=== PATIENT | female | born 1970 | race Caucasian/White ===

== ENCOUNTER 2017-06-17 06:13 | Observation (INO) | payer OTHER, MEDICAID ==
[2017-06-17] MEDS ORDERED: CEFAZOLIN 2 GM/50 ML (PMX) 50 ML IVPB ×2 (07:00→09:30)
[2017-06-17] MEDS ORDERED: FENTAnyl 50 MCG/ML VIAL (08:11)
[2017-06-17] MEDS ORDERED: GLYCOPYRROLATE 0.4 MG INJ (08:11)
[2017-06-17] MEDS ORDERED: PROPOFOL 20 ML (08:11)
[2017-06-17] MEDS ORDERED: CEFAZOLIN 1 GM INJ (08:11)
[2017-06-17] MEDS ORDERED: ROCURONIUM 50 MG INJ (08:11)
[2017-06-17] MEDS ORDERED: DEXAMETHASONE 4 MG/ML 1 ML INJ (08:11)
[2017-06-17] MEDS ORDERED: MIDAZOLAM 1 MG/ML 2 ML INJ (08:11)
[2017-06-17] MEDS ORDERED: ONDANSETRON 4 MG INJ (08:11)
[2017-06-17] MEDS ORDERED: NEOSTIGMINE 3 MG/3 ML SYRINGE (08:11)
[2017-06-17] MEDS ORDERED: SUGAMMADEX SODIUM 200 MG/2 ML VIAL IV (09:07)
[2017-06-17] MEDS ORDERED: LABETALOL HCL 20MG INJ IV (09:30)
[2017-06-17] MEDS ORDERED: FENTAnyl 50 MCG/ML VIAL IV ×3 (09:30)
[2017-06-17] MEDS ORDERED: HYDROmorphONE (0.2 MG/ML) 10ML SYG IV ×2 (09:30)
[2017-06-17] MEDS ORDERED: MIDAZOLAM 1 MG/ML 2 ML INJ IV (09:30)
[2017-06-17] MEDS ORDERED: TRIMETHOBENZAMIDE 100 MG/ML VIAL IM (09:30)
[2017-06-17] MEDS ORDERED: MEPERIDINE 25 MG INJ IV (09:30)
[2017-06-17] MEDS ORDERED: IPRATROPIUM (NEB) 0.5 MG/2.5 ML AMP HHN (09:30)
[2017-06-17] MEDS ORDERED: EPHEDrine SULFATE 50 MG/5 ML SYG IV (09:30)
[2017-06-17] MEDS ORDERED: hydrALAzine 20 MG INJ IV (09:30)
[2017-06-17] MEDS ORDERED: DIPHENHYDRAMINE 50 MG INJ IV (09:30)
[2017-06-17] MEDS ORDERED: OXYCODONE/ACETAMINOPHEN (5/325) TAB PO ×2 (09:30)
[2017-06-17] MEDS ORDERED: ALBUTEROL 0.083% (NEB) 2.5 MG/3 ML AMP HHN (09:30)
[2017-06-17] MEDS: BUPIVACAINE 0.25% (MPF) 30 ML INJ (09:31)
[2017-06-17] MEDS: HYDROmorphONE (0.2 MG/ML) 10ML SYG IV (09:50)
[2017-06-17] MEDS: ONDANSETRON 4 MG INJ IV (09:50)
[2017-06-17 10:13] LABS: ADD MAN DIFF? NO
[2017-06-17 10:17] LABS: BASOPHILS % 0.4 % (0.0-2.0); EOSINOPHILS # 0.4 10^3/ul (0.0-0.5); EOSINOPHILS % 4.4 % (0.0-7.0); HEMATOCRIT 34.5 % (37.0-47.0); HEMOGLOBIN 11.5 g/dl (12.0-16.0); LYMPHOCYTES % 25.1 % (15.0-51.0); MEAN CORPUSCULAR HEMOGLOBIN 27.5 pg (29.0-33.0); MEAN CORPUSCULAR HGB CONC 33.3 g/dl (32.0-37.0); MEAN CORPUSCULAR VOLUME 82.5 fl (82.0-101.0); MEAN PLATELET VOLUME 9.8 fl (7.4-10.4); MONOCYTE # 0.4 10^3/ul (0.3-0.9); MONOCYTES % 5.3 % (0.0-11.0); NEUTROPHIL # 5.1 10^3/ul (1.6-7.5); PLATELET COUNT 273 10^3/UL (140-415); RED BLOOD COUNT 4.18 10^6/ul (4.20-5.40); RED CELL DISTRIBUTION WIDTH 13.4 % (11.5-14.5)
[2017-06-17 10:17] LABS: WHITE BLOOD COUNT 7.9 10^3/ul (4.8-10.8)
[2017-06-17 10:37] LABS: ALANINE AMINOTRANSFERASE 27 IU/L (13-69); ALBUMIN/GLOBULIN RATIO 1.37; ALKALINE PHOSPHATASE 65 IU/L (42-121); ANION GAP 13 (8-16); ASPARTATE AMINO TRANSFERASE 17 IU/L (15-46); CARBON DIOXIDE 21 mmol/L (21-31); CHLORIDE 113 mmol/L (97-110); GLUCOSE 106 mg/dl (70-220); TOTAL PROTEIN 6.9 g/dl (6.1-8.1)
[2017-06-17 10:39] LABS: POTASSIUM 4.4 mmol/L (3.5-5.1); SODIUM 143 mmol/L (135-144)
[2017-06-17 10:40] LABS: BLOOD UREA NITROGEN 15 mg/dl (7-20)
[2017-06-17 10:43] LABS: CALCIUM 10.3 mg/dl (8.4-10.2); CREATININE 0.62 mg/dl (0.44-1.00)
[2017-06-17] MEDS: SOD CHLORIDE 0.9% 1,000 ML IV (11:30)
[2017-06-17] MEDS: morphine 2 MG INJ IV ×2 (11:38→20:51)
[2017-06-17] MEDS: POTASSIUM CHLORIDE 20 MEQ in LACTATED RINGER'S 1,000 ML IV ×2 (15:02→19:36)
[2017-06-17] MEDS: CEFAZOLIN 2 GM/50 ML (PMX) 50 ML IVPB ×2 (15:17→22:25)
[2017-06-17] MEDS: HYDROCODONE/APAP (5/325) TAB PO (16:32)
[2017-06-18] MEDS: POTASSIUM CHLORIDE 20 MEQ in LACTATED RINGER'S 1,000 ML IV ×3 (01:34→22:13)
[2017-06-18] MEDS: HYDROCODONE/APAP (5/325) TAB PO ×3 (01:39→21:41)
[2017-06-18 06:02] LABS: ADD MAN DIFF? NO
[2017-06-18 06:11] LABS: WHITE BLOOD COUNT 16.4 10^3/ul (4.8-10.8)
[2017-06-18 06:11] LABS: BASOPHILS % 0.1 % (0.0-2.0); EOSINOPHILS % 0.1 % (0.0-7.0); HEMATOCRIT 33.3 % (37.0-47.0); HEMOGLOBIN 10.9 g/dl (12.0-16.0); LYMPHOCYTES # 1.5 10^3/ul (0.8-2.9); MEAN CORPUSCULAR HEMOGLOBIN 26.9 pg (29.0-33.0); MEAN CORPUSCULAR HGB CONC 32.7 g/dl (32.0-37.0); MEAN CORPUSCULAR VOLUME 82.2 fl (82.0-101.0); MEAN PLATELET VOLUME 10.6 fl (7.4-10.4); MONOCYTE # 1.1 10^3/ul (0.3-0.9); MONOCYTES % 6.6 % (0.0-11.0); NEUTROPHIL # 13.7 10^3/ul (1.6-7.5); NEUTROPHILS % 83.7 % (39.0-77.0); PLATELET COUNT 302 10^3/UL (140-415); RED BLOOD COUNT 4.05 10^6/ul (4.20-5.40); RED CELL DISTRIBUTION WIDTH 13.3 % (11.5-14.5)
[2017-06-18 06:37] LABS: ALANINE AMINOTRANSFERASE 23 IU/L (13-69); ALBUMIN 3.4 g/dl (3.3-4.9); ALBUMIN/GLOBULIN RATIO 1.17; ALKALINE PHOSPHATASE 61 IU/L (42-121); ANION GAP 15 (8-16); ASPARTATE AMINO TRANSFERASE 16 IU/L (15-46); BILIRUBIN,INDIRECT 0.2 mg/dl (0-1.1); BILIRUBIN,TOTAL 0.2 mg/dl (0.2-1.3); BLOOD UREA NITROGEN 18 mg/dl (7-20); CALCIUM 8.9 mg/dl (8.4-10.2); CARBON DIOXIDE 21 mmol/L (21-31); CHLORIDE 110 mmol/L (97-110); CREATININE 0.72 mg/dl (0.44-1.00); GLUCOSE 97 mg/dl (70-220); POTASSIUM 4.2 mmol/L (3.5-5.1); SODIUM 142 mmol/L (135-144); TOTAL PROTEIN 6.3 g/dl (6.1-8.1)
[2017-06-19 06:40] LABS: ADD MAN DIFF? NO
[2017-06-19 06:44] LABS: WHITE BLOOD COUNT 7.3 10^3/ul (4.8-10.8)
[2017-06-19 06:44] LABS: BASOPHILS % 0.5 % (0.0-2.0); EOSINOPHILS # 0.2 10^3/ul (0.0-0.5); EOSINOPHILS % 2.6 % (0.0-7.0); HEMATOCRIT 31.4 % (37.0-47.0); HEMOGLOBIN 10.4 g/dl (12.0-16.0); LYMPHOCYTES # 2.6 10^3/ul (0.8-2.9); LYMPHOCYTES % 35.8 % (15.0-51.0); MEAN CORPUSCULAR HEMOGLOBIN 27.9 pg (29.0-33.0); MEAN CORPUSCULAR HGB CONC 33.1 g/dl (32.0-37.0); MEAN CORPUSCULAR VOLUME 84.2 fl (82.0-101.0); MEAN PLATELET VOLUME 10.6 fl (7.4-10.4); MONOCYTE # 0.6 10^3/ul (0.3-0.9); MONOCYTES % 8.4 % (0.0-11.0); NEUTROPHIL # 3.8 10^3/ul (1.6-7.5); NEUTROPHILS % 52.3 % (39.0-77.0); PLATELET COUNT 247 10^3/UL (140-415); RED BLOOD COUNT 3.73 10^6/ul (4.20-5.40); RED CELL DISTRIBUTION WIDTH 13.7 % (11.5-14.5)
[2017-06-19 07:09] LABS: ANION GAP 14 (8-16); BLOOD UREA NITROGEN 18 mg/dl (7-20); CALCIUM 8.2 mg/dl (8.4-10.2); CARBON DIOXIDE 24 mmol/L (21-31); CHLORIDE 111 mmol/L (97-110); CREATININE 0.69 mg/dl (0.44-1.00); GLUCOSE 82 mg/dl (70-220); POTASSIUM 3.9 mmol/L (3.5-5.1); SODIUM 145 mmol/L (135-144)
[2017-06-19] MEDS: POTASSIUM CHLORIDE 20 MEQ in LACTATED RINGER'S 1,000 ML IV (09:42)
[2017-06-19] MEDS: HYDROCODONE/APAP (5/325) TAB PO (09:57)
[2017-06-19] MEDS: CALCIUM/VITAMIN D (500/200) TAB PO (13:16)
[2017-06-21 07:36] LABS: PTH INTACT 9 pg/mL (14-64)
== END 2017-06-19 18:43 | disposition home or self-care (01) ==
LOC: SDS 06:13 → REC 10:06 → PP2 11:17
DX: D35.1 Benign neoplasm of parathyroid gland (principal); E21.0 Primary hyperparathyroidism; I10 Essential (primary) hypertension
CPT/HCPCS: 60500; 80048; 80053; 83970; 85025; 88307; 88331; 99217; G0378

== ENCOUNTER 2017-10-07 12:56 | Inpatient (IN) | payer OTHER ==
[~2017-10-07 12:56] MED LIST: ALBUMIN HUMAN 5% 250 ML INJ; CEFAZOLIN 1 GM INJ; GLYCOPYRROLATE 0.4 MG INJ; LIDOCAINE 2% (SDV) 5 ML INJ; NEOSTIGMINE 3 MG/3 ML SYRINGE; PROPOFOL 200 MG INJ; ROCURONIUM 50 MG INJ
[2017-10-07] MEDS ORDERED: ROCURONIUM 50 MG INJ ×2 (15:01→15:42)
[2017-10-07] MEDS ORDERED: PROPOFOL 0 ML (15:01)
[2017-10-07] MEDS ORDERED: NEOSTIGMINE 3 MG/3 ML SYRINGE (15:01)
[2017-10-07] MEDS ORDERED: LIDOCAINE 2% (SDV) 5 ML INJ (15:01)
[2017-10-07] MEDS ORDERED: MEPERIDINE 100 MG INJ (15:01)
[2017-10-07] MEDS ORDERED: GLYCOPYRROLATE 0.4 MG INJ (15:01)
[2017-10-07] MEDS ORDERED: SUCCINYLCHOLINE CHLORIDE 100 MG/5 ML SYG IV (15:01)
[2017-10-07] MEDS ORDERED: CEFAZOLIN 1 GM INJ (15:33)
[2017-10-07] MEDS ORDERED: HYDROmorphONE 2 MG/ML SYG (16:20)
[2017-10-07] MEDS ORDERED: NACL 0.9% 3 ML SYG IV (17:00)
[2017-10-07] MEDS ORDERED: NALOXONE (0.4 MG/ML) INJ IV (17:00)
[2017-10-07] MEDS ORDERED: LABETALOL HCL 20MG INJ (17:00)
[2017-10-07] MEDS: CEFAZOLIN 1 GM INJ (17:01)
[2017-10-07] MEDS: HEPARIN 1000 UNITS/ML 10 ML INJ (17:02)
[2017-10-07] MEDS: GELATIN SIZE 100 SPONGE (17:02)
[2017-10-07] MEDS: THROMBIN 5000 UNIT VIAL (17:03)
[2017-10-07] MEDS ORDERED: GELATIN SIZE 100 SPONGE (17:50)
[2017-10-07] MEDS ORDERED: PHENYLephrine (100 MCG/ML) 5ML SYG (18:51)
[2017-10-07] MEDS ORDERED: ONDANSETRON 4 MG INJ IV (20:30)
[2017-10-07] MEDS ORDERED: ALBUTEROL 0.083% (NEB) 2.5 MG/3 ML AMP HHN (20:30)
[2017-10-07] MEDS ORDERED: METOCLOPRAMIDE 10 MG INJ IV (20:30)
[2017-10-07] MEDS ORDERED: HYDROmorphONE 0.5 MG/0.5 ML SYG IV ×3 (20:30)
[2017-10-07] MEDS ORDERED: EPHEDrine SULFATE 50 MG/5 ML SYG IV (20:30)
[2017-10-07] MEDS ORDERED: LABETALOL HCL 20MG INJ IV (20:30)
[2017-10-07] MEDS ORDERED: DIPHENHYDRAMINE 50 MG INJ IV (20:30)
[2017-10-07] MEDS ORDERED: hydrALAzine 20 MG INJ IV (20:30)
[2017-10-07] MEDS ORDERED: MIDAZOLAM 1 MG/ML 2 ML INJ IV (20:30)
[2017-10-07] MEDS ORDERED: MEPERIDINE 25 MG INJ IV (20:30)
[2017-10-07] MEDS: HYDROmorphONE 1 MG/ML SYG IM (20:32)
[2017-10-07] MEDS: CEFAZOLIN 1 GM/50 ML (PMX) 50 ML IVPB (20:49)
[2017-10-07] MEDS: HYDROmorphONE 0.2 MG/ML PCA IV (20:53)
[2017-10-07] MEDS: NS + KCL 20 MEQ 1,000 ML IV (21:13)
[2017-10-07] MEDS: HYDROmorphONE 2 MG/ML SYG IM (21:14)
[2017-10-08] MEDS: CEFAZOLIN 1 GM/50 ML (PMX) 50 ML IVPB ×3 (05:23→12:27)
[2017-10-08 05:44] LABS: HEMATOCRIT 29.5 % (37.0-47.0); HEMOGLOBIN 9.5 g/dl (12.0-16.0)
[2017-10-08 06:46] LABS: ANION GAP 10 (8-16); BLOOD UREA NITROGEN 14 mg/dl (7-20); CALCIUM 7.6 mg/dl (8.4-10.2); CARBON DIOXIDE 21 mmol/L (21-31); CHLORIDE 112 mmol/L (97-110); CREATININE 0.53 mg/dl (0.44-1.00); GLUCOSE 133 mg/dl (70-220); POTASSIUM 4.2 mmol/L (3.5-5.1); SODIUM 139 mmol/L (135-144)
[2017-10-08] MEDS ORDERED: GLYCOPYRROLATE 0.4 MG INJ (07:00)
[2017-10-08] MEDS ORDERED: NEOSTIGMINE 3 MG/3 ML SYRINGE (07:00)
[2017-10-08] MEDS: NS + KCL 20 MEQ 1,000 ML IV ×3 (07:21→22:28)
[2017-10-08] MEDS: HYDROmorphONE 0.2 MG/ML PCA IV ×2 (10:48→20:06)
[2017-10-08] MEDS ORDERED: THROMBIN 5000 UNIT VIAL (17:52)
[2017-10-08] MEDS ORDERED: GELATIN SIZE 100 SPONGE (17:52)
[2017-10-08] MEDS: ACETAMINOPHEN 325 MG TAB PO (20:08)
[2017-10-08] MEDS ORDERED: HYDROmorphONE 0.5 MG/0.5 ML SYG IV ×3 (20:30)
[2017-10-08] MEDS ORDERED: ONDANSETRON 4 MG INJ IV (20:30)
[2017-10-08] MEDS ORDERED: DIPHENHYDRAMINE 50 MG INJ IV (20:30)
[2017-10-08] MEDS ORDERED: LABETALOL HCL 20MG INJ IV (20:30)
[2017-10-08] MEDS ORDERED: FENTAnyl 50 MCG/ML VIAL IV (20:30)
[2017-10-08] MEDS ORDERED: MEPERIDINE 25 MG INJ IV (20:30)
[2017-10-08] MEDS ORDERED: hydrALAzine 20 MG INJ IV (20:30)
[2017-10-08] MEDS ORDERED: ROCURONIUM 50 MG INJ (20:44)
[2017-10-08] MEDS ORDERED: LIDOCAINE 2% (SDV) 5 ML INJ (20:44)
[2017-10-08] MEDS ORDERED: PROPOFOL 20 ML (20:44)
[2017-10-08] MEDS ORDERED: SUCCINYLCHOLINE CHLORIDE 100 MG/5 ML SYG IV (20:44)
[2017-10-08] MEDS ORDERED: MIDAZOLAM 1 MG/ML 2 ML INJ (20:44)
[2017-10-08] MEDS ORDERED: PHENYLephrine (100 MCG/ML) 5ML SYG ×3 (20:58→22:20)
[2017-10-08] MEDS: ROPIVACAINE 0.5 % 30 ML VIAL ×2 (21:19)
[2017-10-08] MEDS ORDERED: CEFAZOLIN 1 GM INJ (21:19)
[2017-10-08] MEDS ORDERED: DEXAMETHASONE 4 MG/ML 1 ML INJ (21:28)
[2017-10-08] MEDS ORDERED: ONDANSETRON 4 MG INJ (21:28)
[2017-10-08] MEDS ORDERED: FAMOTIDINE 20 MG INJ (21:28)
[2017-10-08] MEDS ORDERED: FENTAnyl 50 MCG/ML VIAL (21:29)
[2017-10-08] MEDS: POLYMYXIN/BACITRACIN 1L IRRIG (21:30)
[2017-10-08] MEDS ORDERED: HYDROmorphONE 2 MG/ML SYG (21:48)
[2017-10-08] MEDS ORDERED: SUGAMMADEX SODIUM 200 MG/2 ML VIAL IV ×2 (21:48→21:58)
[2017-10-08] MEDS: ALBUMIN HUMAN 5% 250 ML (22:40)
[2017-10-09 05:35] LABS: WHITE BLOOD COUNT 10.5 10^3/ul (4.8-10.8)
[2017-10-09 05:35] LABS: ABNORMAL IP MESSAGE 1; HEMATOCRIT 28.7 % (37.0-47.0); HEMOGLOBIN 9.1 g/dl (12.0-16.0); MEAN CORPUSCULAR HEMOGLOBIN 26.9 pg (29.0-33.0); MEAN CORPUSCULAR HGB CONC 31.7 g/dl (32.0-37.0); MEAN CORPUSCULAR VOLUME 84.9 fl (82.0-101.0); PLATELET COUNT 247 10^3/UL (140-415); RED BLOOD COUNT 3.38 10^6/ul (4.20-5.40); RED CELL DISTRIBUTION WIDTH 14.6 % (11.5-14.5)
[2017-10-09] MEDS: NS + KCL 20 MEQ 1,000 ML IV ×3 (05:43→18:27)
[2017-10-09 06:03] LABS: ANION GAP 9 (8-16); BLOOD UREA NITROGEN 14 mg/dl (7-20); CALCIUM 7.1 mg/dl (8.4-10.2); CARBON DIOXIDE 22 mmol/L (21-31); CHLORIDE 115 mmol/L (97-110); CREATININE 0.61 mg/dl (0.44-1.00); GLUCOSE 112 mg/dl (70-220); POTASSIUM 4.3 mmol/L (3.5-5.1); SODIUM 142 mmol/L (135-144)
[2017-10-09 06:22] LABS: ADD MAN DIFF? YES; POSITIVE DIFF @See below
[2017-10-09] MEDS: HYDROmorphONE 0.2 MG/ML PCA IV ×2 (09:05→20:26)
[2017-10-09 09:11] LABS: ANISOCYTOSIS 1+ (0-0); BAND NEUTROPHILS #M 4.6 10^3/ul (0.0-0.6); BAND NEUTROPHILS % (M) 44 % (0-4); GIANT THROMBO% (M) 1 % (0-0); LYMPHOCYTES #M 0.8 10^3/ul (0.8-2.9); LYMPHOCYTES % (M) 8 % (15-51); MICROCYTOSIS 1+ (0-0); MONOCYTE #M 0.4 10^3/ul (0.3-0.9); MONOCYTES % (M) 4 % (0-11); PLATELET ESTIMATE NORMAL; POLYCHROMASIA 1+ (0-0); SEG NEUT #M 5.1 10^3/ul (1.6-7.5); SEGMENTED NEUTROPHILS (M) % 44 % (39-77); SMUDGE%M 1 % (0-0)
[2017-10-09] MEDS: ACETAMINOPHEN 325 MG TAB PO (14:52)
[2017-10-10] MEDS: NS + KCL 20 MEQ 1,000 ML IV ×3 (02:31→15:00)
[2017-10-10] MEDS: ACETAMINOPHEN 325 MG TAB PO (05:00)
[2017-10-10 05:28] LABS: ADD MAN DIFF? NO
[2017-10-10 05:35] LABS: ABNORMAL IP MESSAGE 1; BASOPHIL # 0.1 10^3/ul (0.0-0.1); BASOPHILS % 0.4 % (0.0-2.0); HEMATOCRIT 29.7 % (37.0-47.0); HEMOGLOBIN 9.4 g/dl (12.0-16.0); LYMPHOCYTES # 0.4 10^3/ul (0.8-2.9); MEAN CORPUSCULAR HEMOGLOBIN 27.2 pg (29.0-33.0); MEAN CORPUSCULAR HGB CONC 31.6 g/dl (32.0-37.0); MEAN CORPUSCULAR VOLUME 85.8 fl (82.0-101.0); MONOCYTE # 0.8 10^3/ul (0.3-0.9); MONOCYTES % 5.6 % (0.0-11.0); NEUTROPHIL # 12.4 10^3/ul (1.6-7.5); PLATELET COUNT 306 10^3/UL (140-415); RED BLOOD COUNT 3.46 10^6/ul (4.20-5.40); RED CELL DISTRIBUTION WIDTH 14.5 % (11.5-14.5)
[2017-10-10 05:35] LABS: WHITE BLOOD COUNT 13.7 10^3/ul (4.8-10.8)
[2017-10-10 05:49] LABS: NEUTROPHILS % 90.2 % (39.0-77.0); POSITIVE DIFF @See below
[2017-10-10 05:55] LABS: ALANINE AMINOTRANSFERASE 22 IU/L (13-69); ALBUMIN/GLOBULIN RATIO 1.03; ALKALINE PHOSPHATASE 53 IU/L (42-121); ANION GAP 10 (8-16); ASPARTATE AMINO TRANSFERASE 26 IU/L (15-46); BILIRUBIN,INDIRECT 0.5 mg/dl (0-1.1); BILIRUBIN,TOTAL 0.5 mg/dl (0.2-1.3); BLOOD UREA NITROGEN 14 mg/dl (7-20); CALCIUM 7.2 mg/dl (8.4-10.2); CARBON DIOXIDE 23 mmol/L (21-31); CHLORIDE 110 mmol/L (97-110); CREATININE 0.65 mg/dl (0.44-1.00); GLUCOSE 130 mg/dl (70-220); POTASSIUM 4.3 mmol/L (3.5-5.1); SODIUM 139 mmol/L (135-144); TOTAL PROTEIN 5.9 g/dl (6.1-8.1)
[2017-10-10] MEDS: HYDROmorphONE 0.2 MG/ML PCA IV ×2 (06:33→16:27)
[2017-10-10] MEDS: ATENOLOL 25 MG TAB PO ×2 (07:03→20:18)
[2017-10-10 07:29] LABS: ANISOCYTOSIS 2+ (0-0); BAND NEUTROPHILS #M 6.4 10^3/ul (0.0-0.6); BAND NEUTROPHILS % (M) 47 % (0-4); LYMPHOCYTES % (M) 8 % (15-51); MICROCYTOSIS 2+ (0-0); MONOCYTE #M 0.2 10^3/ul (0.3-0.9); MONOCYTES % (M) 2 % (0-11); PLATELET ESTIMATE NORMAL; POLYCHROMASIA 2+ (0-0); SEG NEUT #M 6.8 10^3/ul (1.6-7.5); SEGMENTED NEUTROPHILS (M) % 43 % (39-77)
[2017-10-10] MEDS ORDERED: ATENOLOL 25 MG TAB PO (09:00)
[2017-10-10] MEDS: KETOROLAC 15 MG INJ IV (18:22)
[2017-10-10] MEDS: MAGNESIUM HYDROXIDE 30ML CUP PO (20:14)
[2017-10-10] MEDS: LEVOTHYROXINE 150 MCG TAB PO (21:32)
[2017-10-10] MEDS: HYDROmorphONE 0.5 MG/0.5 ML SYG IV (23:38)
[2017-10-11] MEDS: KETOROLAC 15 MG INJ IV ×3 (01:42→18:18)
[2017-10-11] MEDS: ONDANSETRON 4 MG INJ IV ×2 (04:45→13:40)
[2017-10-11] MEDS: HYDROmorphONE 0.5 MG/0.5 ML SYG IV ×5 (04:46→22:12)
[2017-10-11] MEDS: LEVOTHYROXINE 150 MCG TAB PO (06:05)
[2017-10-11] MEDS: ATENOLOL 25 MG TAB PO ×2 (08:36→21:00)
[2017-10-11] MEDS: HYDROCODONE/APAP (10/325) TAB PO (11:12)
[2017-10-11] MEDS: SOD CHLORIDE 0.9% 1,000 ML IV (16:37)
[2017-10-11] MEDS: hydrALAzine 20 MG INJ IV (22:01)
[2017-10-12] MEDS: HYDROmorphONE 0.5 MG/0.5 ML SYG IV ×8 (00:33→23:12)
[2017-10-12] MEDS: SOD CHLORIDE 0.9% 1,000 ML IV ×3 (02:00→17:19)
[2017-10-12] MEDS: KETOROLAC 15 MG INJ IV ×2 (02:08→10:18)
[2017-10-12] MEDS: LEVOTHYROXINE 150 MCG TAB PO (06:00)
[2017-10-12] MEDS: ATENOLOL 25 MG TAB PO ×3 (09:00→20:18)
[2017-10-12] MEDS: IOHEXOL 14.3 MG(I)/ML (ADULT) BTL PO (12:00)
[2017-10-12] MEDS: METOPROLOL 5 MG INJ IV ×3 (12:33→22:03)
[2017-10-12] MEDS: IOHEXOL 300MG/ML 150 ML BTL (18:49)
[2017-10-12] MEDS: SOD CHLORIDE 0.9% 100 ML (18:49)
[2017-10-12 19:05] LABS: TROPONIN-I 0.015 ng/ml (0.000-0.120)
[2017-10-12 21:37] LABS: LACTIC ACID 1.2 mmol/L (0.5-2.0)
[2017-10-13 01:33] LABS: TROPONIN-I 0.018 ng/ml (0.000-0.120)
[2017-10-13] MEDS: HYDROmorphONE 0.5 MG/0.5 ML SYG IV ×9 (01:57→23:47)
[2017-10-13] MEDS: LEVOTHYROXINE 150 MCG TAB PO (05:07)
[2017-10-13] MEDS: ACETAMINOPHEN 650 MG SUPP PR (05:42)
[2017-10-13] MEDS: METOPROLOL 5 MG INJ IV ×4 (05:42→21:14)
[2017-10-13 06:48] LABS: HEMOGLOBIN 8.6 g/dl (12.0-16.0); MEAN CORPUSCULAR HEMOGLOBIN 25.9 pg (29.0-33.0); MEAN CORPUSCULAR HGB CONC 31.9 g/dl (32.0-37.0); MEAN CORPUSCULAR VOLUME 81.3 fl (82.0-101.0); MEAN PLATELET VOLUME 9.8 fl (7.4-10.4); PLATELET COUNT 346 10^3/UL (140-415); RED BLOOD COUNT 3.32 10^6/ul (4.20-5.40); RED CELL DISTRIBUTION WIDTH 14.6 % (11.5-14.5)
[2017-10-13 06:48] LABS: WHITE BLOOD COUNT 13.4 10^3/ul (4.8-10.8)
[2017-10-13 06:49] LABS: ABNORMAL IP MESSAGE 1; NUCLEATED RED BLOOD CELLS% 0.2 /100WBC (0.0-0.0)
[2017-10-13 07:07] LABS: ANION GAP 12 (8-16); BLOOD UREA NITROGEN 16 mg/dl (7-20); CALCIUM 7.2 mg/dl (8.4-10.2); CARBON DIOXIDE 23 mmol/L (21-31); CHLORIDE 113 mmol/L (97-110); CREATININE 0.47 mg/dl (0.44-1.00); GLUCOSE 89 mg/dl (70-220); POTASSIUM 3.7 mmol/L (3.5-5.1); SODIUM 144 mmol/L (135-144)
[2017-10-13 07:11] LABS: ADD MAN DIFF? YES; POSITIVE DIFF @See below
[2017-10-13 07:15] LABS: TROPONIN-I 0.018 ng/ml (0.000-0.120)
[2017-10-13] MEDS: SOD CHLORIDE 0.9% 1,000 ML IV (08:00)
[2017-10-13] MEDS: ATENOLOL 25 MG TAB PO (08:03)
[2017-10-13] MEDS: CEFTRIAXONE 1 GM/50 ML (PMX) 50 ML IVPB (09:04)
[2017-10-13 09:37] LABS: ANISOCYTOSIS 1+ (0-0); BAND NEUTROPHILS % (M) 23 % (0-4); HYPOCHROMASIA 1+ (0-0); LYMPHOCYTES #M 0.5 10^3/ul (0.8-2.9); LYMPHOCYTES % (M) 4 % (15-51); METAMYELOCYTES #M 0.1 10^3/ul (0.0-0.0); METAMYELOCYTES %M 1 % (0-0); MICROCYTOSIS 1+ (0-0); MONOCYTE #M 0.9 10^3/ul (0.3-0.9); MONOCYTES % (M) 7 % (0-11); MYELOCYTES #M 0.4 10^3/ul (0.0-0.0); MYELOCYTES % (M) 3 % (0-0); PLATELET ESTIMATE NORMAL; POLYCHROMASIA 3+ (0-0); REACTIVE LYMPHOCYTES #M 0.1 10^3/ul (0.0-0.0); REACTIVE LYMPHOCYTES% (M) 1 % (0-0); SEG NEUT #M 8.6 10^3/ul (1.6-7.5); SEGMENTED NEUTROPHILS (M) % 61 % (39-77); SMUDGE%M 2 % (0-0)
[2017-10-13] MEDS: D5W-0.45 NACL + KCL 20 MEQ 1,000 ML IV ×3 (11:10→21:14)
[2017-10-13 11:55] LABS: INR 1.13; PROTIME 14.7 Sec (11.9-14.9); PT RATIO 1.1
[2017-10-13] MEDS ORDERED: DILTIAZEM 25 MG INJ IV (12:00)
[2017-10-13] MEDS: DIGOXIN 500 MCG INJ IV (12:14)
[2017-10-13 13:06] LABS: PARTIAL THROMBOPLASTIN TIME 27.3 Sec (25.0-35.0)
[2017-10-13] MEDS: SOD CHLORIDE 0.9% 500 ML (14:41)
[2017-10-13] MEDS: LIDOCAINE 1% (MDV) 10 ML INJ (14:41)
[2017-10-13] MEDS: FENTAnyl 50 MCG/ML VIAL (14:41)
[2017-10-13] MEDS: MIDAZOLAM 1 MG/ML 2 ML INJ (14:41)
[2017-10-13] MEDS: ONDANSETRON 4 MG INJ (14:42)
[2017-10-13] MEDS: PIPER-TAZO 3.375 GM IV (PMX) 100 ML IVPB ×2 (17:21→23:48)
[2017-10-14] MEDS: METOPROLOL 5 MG INJ IV ×6 (01:23→20:49)
[2017-10-14] MEDS: HYDROmorphONE 0.5 MG/0.5 ML SYG IV ×8 (03:08→23:01)
[2017-10-14] MEDS: D5W-0.45 NACL + KCL 20 MEQ 1,000 ML IV ×2 (05:22→17:45)
[2017-10-14] MEDS: PIPER-TAZO 3.375 GM IV (PMX) 100 ML IVPB ×4 (05:22→23:01)
[2017-10-14] MEDS: LEVOTHYROXINE 150 MCG TAB PO (06:00)
[2017-10-14 06:14] LABS: ABNORMAL IP MESSAGE 1; HEMATOCRIT 27.7 % (37.0-47.0); HEMOGLOBIN 8.7 g/dl (12.0-16.0); MEAN CORPUSCULAR HEMOGLOBIN 25.7 pg (29.0-33.0); MEAN CORPUSCULAR HGB CONC 31.4 g/dl (32.0-37.0); MEAN PLATELET VOLUME 9.3 fl (7.4-10.4); NUCLEATED RED BLOOD CELLS% 0.4 /100WBC (0.0-0.0); PLATELET COUNT 344 10^3/UL (140-415); RED BLOOD COUNT 3.38 10^6/ul (4.20-5.40); RED CELL DISTRIBUTION WIDTH 14.6 % (11.5-14.5)
[2017-10-14 06:19] LABS: ADD MAN DIFF? YES; POSITIVE DIFF @See below
[2017-10-14 06:44] LABS: ALANINE AMINOTRANSFERASE 34 IU/L (13-69); ALBUMIN 2.8 g/dl (3.3-4.9); ALKALINE PHOSPHATASE 108 IU/L (42-121); ANION GAP 8 (8-16); ASPARTATE AMINO TRANSFERASE 28 IU/L (15-46); BILIRUBIN,INDIRECT 0.4 mg/dl (0-1.1); BILIRUBIN,TOTAL 0.4 mg/dl (0.2-1.3); BLOOD UREA NITROGEN 12 mg/dl (7-20); CALCIUM 7.2 mg/dl (8.4-10.2); CARBON DIOXIDE 26 mmol/L (21-31); CHLORIDE 115 mmol/L (97-110); CREATININE 0.47 mg/dl (0.44-1.00); GLUCOSE 119 mg/dl (70-220); POTASSIUM 4.1 mmol/L (3.5-5.1); SODIUM 145 mmol/L (135-144); TOTAL PROTEIN 5.6 g/dl (6.1-8.1)
[2017-10-14] MEDS: CEFTRIAXONE 1 GM/50 ML (PMX) 50 ML IVPB (08:13)
[2017-10-14] MEDS: PANTOPRAZOLE 40 MG INJ IV ×2 (09:47→17:47)
[2017-10-14 10:19] LABS: ANISOCYTOSIS 1+ (0-0); BAND NEUTROPHILS #M 3.2 10^3/ul (0.0-0.6); BAND NEUTROPHILS % (M) 20 % (0-4); ERYTHROBLAST% (NRBC) (M) 1 % (0-0); GIANT THROMBO% (M) 1 % (0-0); LYMPHOCYTES #M 1.4 10^3/ul (0.8-2.9); LYMPHOCYTES % (M) 9 % (15-51); METAMYELOCYTES #M 0.1 10^3/ul (0.0-0.0); METAMYELOCYTES %M 1 % (0-0); MICROCYTOSIS 1+ (0-0); MONOCYTE #M 1.6 10^3/ul (0.3-0.9); MONOCYTES % (M) 10 % (0-11); MYELOCYTES #M 0.4 10^3/ul (0.0-0.0); MYELOCYTES % (M) 3 % (0-0); PLATELET ESTIMATE NORMAL; POLYCHROMASIA 1+ (0-0); PROMYELOCYTES #M 0.3 10^3/ul (0-0); PROMYELOCYTES % (M) 2 % (0-0); REACTIVE LYMPHOCYTES #M 0.4 10^3/ul (0.0-0.0); REACTIVE LYMPHOCYTES% (M) 3 % (0-0); SEG NEUT #M 8.8 10^3/ul (1.6-7.5); SEGMENTED NEUTROPHILS (M) % 52 % (39-77); SMUDGE%M 40 % (0-0)
[2017-10-14] MEDS: KETOROLAC 30 MG INJ IV (10:43)
[2017-10-15] MEDS: HYDROmorphONE 0.5 MG/0.5 ML SYG IV ×11 (00:57→23:46)
[2017-10-15] MEDS: METOPROLOL 5 MG INJ IV ×6 (01:00→21:44)
[2017-10-15] MEDS: D5W-0.45 NACL + KCL 20 MEQ 1,000 ML IV ×4 (02:42→22:32)
[2017-10-15] MEDS: PANTOPRAZOLE 40 MG INJ IV ×2 (05:07→17:08)
[2017-10-15] MEDS: PIPER-TAZO 3.375 GM IV (PMX) 100 ML IVPB ×4 (05:07→23:46)
[2017-10-15] MEDS: LEVOTHYROXINE 150 MCG TAB PO (06:00)
[2017-10-16] MEDS: METOPROLOL 5 MG INJ IV ×5 (01:04→21:56)
[2017-10-16] MEDS: HYDROmorphONE 0.5 MG/0.5 ML SYG IV ×10 (02:25→23:30)
[2017-10-16] MEDS: D5W-0.45 NACL + KCL 20 MEQ 1,000 ML IV ×3 (03:00→21:56)
[2017-10-16] MEDS: PANTOPRAZOLE 40 MG INJ IV ×2 (05:50→21:55)
[2017-10-16] MEDS: LEVOTHYROXINE 150 MCG TAB PO ×3 (05:51→06:04)
[2017-10-16] MEDS: PIPER-TAZO 3.375 GM IV (PMX) 100 ML IVPB ×3 (05:51→21:56)
[2017-10-16 07:23] LABS: WHITE BLOOD COUNT 13.1 10^3/ul (4.8-10.8)
[2017-10-16 07:23] LABS: ABNORMAL IP MESSAGE 1; HEMATOCRIT 29.4 % (37.0-47.0); HEMOGLOBIN 9.4 g/dl (12.0-16.0); MEAN CORPUSCULAR HEMOGLOBIN 26.6 pg (29.0-33.0); MEAN CORPUSCULAR VOLUME 83.1 fl (82.0-101.0); MEAN PLATELET VOLUME 9.9 fl (7.4-10.4); NUCLEATED RED BLOOD CELLS% 0.2 /100WBC (0.0-0.0); PLATELET COUNT 335 10^3/UL (140-415); RED BLOOD COUNT 3.54 10^6/ul (4.20-5.40); RED CELL DISTRIBUTION WIDTH 14.5 % (11.5-14.5)
[2017-10-16 07:34] LABS: ADD MAN DIFF? YES; POSITIVE DIFF @See below
[2017-10-16 08:13] LABS: ALANINE AMINOTRANSFERASE 32 IU/L (13-69); ALBUMIN 2.7 g/dl (3.3-4.9); ALBUMIN/GLOBULIN RATIO 0.87; ALKALINE PHOSPHATASE 103 IU/L (42-121); ANION GAP 9 (8-16); ASPARTATE AMINO TRANSFERASE 24 IU/L (15-46); BILIRUBIN,INDIRECT 0.4 mg/dl (0-1.1); BILIRUBIN,TOTAL 0.4 mg/dl (0.2-1.3); BLOOD UREA NITROGEN 5 mg/dl (7-20); CALCIUM 7.4 mg/dl (8.4-10.2); CARBON DIOXIDE 25 mmol/L (21-31); CHLORIDE 107 mmol/L (97-110); CREATININE 0.44 mg/dl (0.44-1.00); GLUCOSE 117 mg/dl (70-220); MAGNESIUM 2.1 mg/dl (1.7-2.5); PHOSPHORUS 3.3 mg/dl (2.5-4.9); SODIUM 137 mmol/L (135-144); TOTAL PROTEIN 5.8 g/dl (6.1-8.1)
[2017-10-16 09:48] LABS: ANISOCYTOSIS 1+ (0-0); BAND NEUTROPHILS #M 0.9 10^3/ul (0.0-0.6); BAND NEUTROPHILS % (M) 7 % (0-4); EOSINOPHILS % (M) 1 % (0-7); ERYTHROBLAST% (NRBC) (M) 2 % (0-0); LYMPHOCYTES % (M) 8 % (15-51); METAMYELOCYTES #M 0.3 10^3/ul (0.0-0.0); METAMYELOCYTES %M 3 % (0-0); MONOCYTE #M 0.6 10^3/ul (0.3-0.9); MONOCYTES % (M) 5 % (0-11); MYELOCYTES #M 0.1 10^3/ul (0.0-0.0); MYELOCYTES % (M) 1 % (0-0); PLASMA CELLS #M 0.1 10^3/ul (0.0-0.0); PLASMAC%(M) 1 % (0); PLATELET ESTIMATE NORMAL; POLYCHROMASIA 2+ (0-0); SEG NEUT #M 9.8 10^3/ul (1.6-7.5); SEGMENTED NEUTROPHILS (M) % 74 % (39-77); SMUDGE%M 14 % (0-0); TOXIC GRANULATION 1+ (0-0)
[2017-10-16] MEDS: ONDANSETRON 4 MG INJ IV (16:01)
[2017-10-16] MEDS: LIDOCAINE 1% (MPF) 5 ML VIAL SC (17:55)
[2017-10-17] MEDS: METOPROLOL 5 MG INJ IV ×5 (01:45→18:55)
[2017-10-17] MEDS: HYDROmorphONE 0.5 MG/0.5 ML SYG IV ×10 (01:46→20:34)
[2017-10-17] MEDS: PIPER-TAZO 3.375 GM IV (PMX) 100 ML IVPB ×4 (01:46→18:51)
[2017-10-17] MEDS: D5W-0.45 NACL + KCL 20 MEQ 1,000 ML IV ×3 (03:00→20:57)
[2017-10-17] MEDS: PANTOPRAZOLE 40 MG INJ IV ×2 (05:53→18:55)
[2017-10-17] MEDS: LEVOTHYROXINE 150 MCG TAB PO (06:00)
[2017-10-17 06:56] LABS: ABNORMAL IP MESSAGE 1; HEMATOCRIT 29.8 % (37.0-47.0); HEMOGLOBIN 9.4 g/dl (12.0-16.0); MEAN CORPUSCULAR HEMOGLOBIN 25.5 pg (29.0-33.0); MEAN CORPUSCULAR HGB CONC 31.5 g/dl (32.0-37.0); MEAN PLATELET VOLUME 9.9 fl (7.4-10.4); NUCLEATED RED BLOOD CELLS% 0.2 /100WBC (0.0-0.0); PLATELET COUNT 337 10^3/UL (140-415); RED BLOOD COUNT 3.68 10^6/ul (4.20-5.40); RED CELL DISTRIBUTION WIDTH 14.5 % (11.5-14.5)
[2017-10-17 06:56] LABS: WHITE BLOOD COUNT 13.1 10^3/ul (4.8-10.8)
[2017-10-17 07:09] LABS: POSITIVE DIFF @See below
[2017-10-17 07:10] LABS: ADD MAN DIFF? YES
[2017-10-17 07:25] LABS: ANION GAP 9 (8-16); BLOOD UREA NITROGEN 7 mg/dl (7-20); CALCIUM 7.4 mg/dl (8.4-10.2); CARBON DIOXIDE 26 mmol/L (21-31); CHLORIDE 105 mmol/L (97-110); CREATININE 0.52 mg/dl (0.44-1.00); GLUCOSE 124 mg/dl (70-220); MAGNESIUM 2.1 mg/dl (1.7-2.5); PHOSPHORUS 3.3 mg/dl (2.5-4.9); POTASSIUM 4.2 mmol/L (3.5-5.1); SODIUM 136 mmol/L (135-144)
[2017-10-17 09:52] LABS: ANISOCYTOSIS 1+ (0-0); BAND NEUTROPHILS #M 2.2 10^3/ul (0.0-0.6); BAND NEUTROPHILS % (M) 17 % (0-4); LYMPHOCYTES % (M) 8 % (15-51); METAMYELOCYTES #M 0.1 10^3/ul (0.0-0.0); METAMYELOCYTES %M 1 % (0-0); MICROCYTOSIS 1+ (0-0); MONOCYTE #M 0.9 10^3/ul (0.3-0.9); MONOCYTES % (M) 7 % (0-11); MYELOCYTES #M 0.1 10^3/ul (0.0-0.0); MYELOCYTES % (M) 1 % (0-0); PLATELET ESTIMATE NORMAL; POLYCHROMASIA 1+ (0-0); REACTIVE LYMPHOCYTES #M 0.1 10^3/ul (0.0-0.0); REACTIVE LYMPHOCYTES% (M) 1 % (0-0); SEG NEUT #M 8.8 10^3/ul (1.6-7.5); SEGMENTED NEUTROPHILS (M) % 65 % (39-77); SMUDGE%M 4 % (0-0)
[2017-10-17] MEDS: IOHEXOL 14.3 MG(I)/ML (ADULT) BTL PO (13:14)
[2017-10-17] MEDS: ONDANSETRON 4 MG INJ IV (13:37)
[2017-10-17] MEDS: HYDROmorphONE 1 MG/ML SYG IV ×3 (13:37→23:53)
[2017-10-17] MEDS: SOD CHLORIDE 0.9% 100 ML ×2 (17:15→18:10)
[2017-10-17] MEDS: IOHEXOL 300MG/ML 150 ML BTL (17:16)
[2017-10-17] MEDS ORDERED: TPN 1,000 ML IV (19:47)
[2017-10-17] MEDS ORDERED: HYDROmorphONE 0.5 MG/0.5 ML SYG IV (20:00)
[2017-10-17] MEDS: ACCU-CHEK XX (21:00)
[2017-10-17 21:23] LABS: ALANINE AMINOTRANSFERASE 45 IU/L (13-69); ALBUMIN 2.8 g/dl (3.3-4.9); ALBUMIN/GLOBULIN RATIO 0.84; ALKALINE PHOSPHATASE 129 IU/L (42-121); ANION GAP 11 (8-16); ASPARTATE AMINO TRANSFERASE 43 IU/L (15-46); BILIRUBIN,INDIRECT 0.5 mg/dl (0-1.1); BILIRUBIN,TOTAL 0.5 mg/dl (0.2-1.3); BLOOD UREA NITROGEN 6 mg/dl (7-20); CALCIUM 7.5 mg/dl (8.4-10.2); CARBON DIOXIDE 25 mmol/L (21-31); CHLORIDE 101 mmol/L (97-110); CREATININE 0.46 mg/dl (0.44-1.00); GLUCOSE 114 mg/dl (70-220); MAGNESIUM 1.9 mg/dl (1.7-2.5); PHOSPHORUS 3.2 mg/dl (2.5-4.9); POTASSIUM 4.1 mmol/L (3.5-5.1); SODIUM 133 mmol/L (135-144); TOTAL PROTEIN 6.1 g/dl (6.1-8.1); TRIGLYCERIDES 137 mg/dl (0-149)
[2017-10-17 21:43] LABS: PREALBUMIN 9.6 mg/dl (17.6-36.0)
[2017-10-18] MEDS: PIPER-TAZO 3.375 GM IV (PMX) 100 ML IVPB ×4 (00:26→17:15)
[2017-10-18] MEDS: METOPROLOL 5 MG INJ IV ×7 (00:27→20:20)
[2017-10-18] MEDS: TPN 1,000 ML IV ×2 (00:28→17:19)
[2017-10-18] MEDS: ACCU-CHEK XX ×6 (01:00→20:40)
[2017-10-18] MEDS: D5W-0.45 NACL + KCL 20 MEQ 1,000 ML IV ×3 (03:00→20:26)
[2017-10-18] MEDS: HYDROmorphONE 1 MG/ML SYG IV ×5 (03:54→21:23)
[2017-10-18] MEDS: PANTOPRAZOLE 40 MG INJ IV ×2 (05:42→17:14)
[2017-10-18] MEDS: LEVOTHYROXINE 150 MCG TAB PO (06:00)
[2017-10-18 06:37] LABS: ADD MAN DIFF? NO
[2017-10-18 06:45] LABS: WHITE BLOOD COUNT 13.9 10^3/ul (4.8-10.8)
[2017-10-18 06:45] LABS: BASOPHIL # 0.1 10^3/ul (0.0-0.1); BASOPHILS % 0.4 % (0.0-2.0); EOSINOPHILS # 0.1 10^3/ul (0.0-0.5); EOSINOPHILS % 0.6 % (0.0-7.0); HEMATOCRIT 28.6 % (37.0-47.0); HEMOGLOBIN 9.2 g/dl (12.0-16.0); LYMPHOCYTES # 1.1 10^3/ul (0.8-2.9); LYMPHOCYTES % 7.6 % (15.0-51.0); MEAN CORPUSCULAR HEMOGLOBIN 26.6 pg (29.0-33.0); MEAN CORPUSCULAR HGB CONC 32.2 g/dl (32.0-37.0); MEAN CORPUSCULAR VOLUME 82.7 fl (82.0-101.0); MEAN PLATELET VOLUME 9.8 fl (7.4-10.4); MONOCYTES % 7.1 % (0.0-11.0); NEUTROPHILS % 79.4 % (39.0-77.0); PLATELET COUNT 317 10^3/UL (140-415); RED BLOOD COUNT 3.46 10^6/ul (4.20-5.40); RED CELL DISTRIBUTION WIDTH 14.3 % (11.5-14.5)
[2017-10-18 07:11] LABS: INR 1.15; PROTIME 14.9 Sec (11.9-14.9); PT RATIO 1.2
[2017-10-18 07:12] LABS: ALANINE AMINOTRANSFERASE 47 IU/L (13-69); ALBUMIN 2.7 g/dl (3.3-4.9); ALBUMIN/GLOBULIN RATIO 0.81; ALKALINE PHOSPHATASE 115 IU/L (42-121); ANION GAP 9 (8-16); ASPARTATE AMINO TRANSFERASE 46 IU/L (15-46); BILIRUBIN,INDIRECT 0.4 mg/dl (0-1.1); BILIRUBIN,TOTAL 0.4 mg/dl (0.2-1.3); BLOOD UREA NITROGEN 7 mg/dl (7-20); CALCIUM 7.4 mg/dl (8.4-10.2); CARBON DIOXIDE 25 mmol/L (21-31); CHLORIDE 102 mmol/L (97-110); CREATININE 0.42 mg/dl (0.44-1.00); GLUCOSE 145 mg/dl (70-220); POTASSIUM 4.4 mmol/L (3.5-5.1); SODIUM 132 mmol/L (135-144)
[2017-10-18 07:14] LABS: PHOSPHORUS 2.9 mg/dl (2.5-4.9)
[2017-10-18] MEDS: FAT EMULSION 20% 250 ML IV (09:08)
[2017-10-18] MEDS: ONDANSETRON 4 MG INJ IV (20:20)
[2017-10-19] MEDS: ACCU-CHEK XX ×6 (00:35→21:27)
[2017-10-19] MEDS: PIPER-TAZO 3.375 GM IV (PMX) 100 ML IVPB ×4 (00:38→17:46)
[2017-10-19] MEDS: METOPROLOL 5 MG INJ IV ×6 (00:38→21:28)
[2017-10-19] MEDS: HYDROmorphONE 1 MG/ML SYG IV ×6 (00:42→21:29)
[2017-10-19] MEDS: D5W-0.45 NACL + KCL 20 MEQ 1,000 ML IV ×4 (03:00→21:32)
[2017-10-19] MEDS: PANTOPRAZOLE 40 MG INJ IV ×2 (05:38→17:36)
[2017-10-19] MEDS: LEVOTHYROXINE 150 MCG TAB PO (05:39)
[2017-10-19 06:11] LABS: WHITE BLOOD COUNT 8.4 10^3/ul (4.8-10.8)
[2017-10-19 06:11] LABS: ABNORMAL IP MESSAGE 1; HEMOGLOBIN 9.4 g/dl (12.0-16.0); MEAN CORPUSCULAR HEMOGLOBIN 25.8 pg (29.0-33.0); MEAN CORPUSCULAR HGB CONC 31.3 g/dl (32.0-37.0); MEAN CORPUSCULAR VOLUME 82.2 fl (82.0-101.0); PLATELET COUNT 329 10^3/UL (140-415); RED BLOOD COUNT 3.65 10^6/ul (4.20-5.40); RED CELL DISTRIBUTION WIDTH 14.6 % (11.5-14.5)
[2017-10-19 06:25] LABS: POSITIVE DIFF @See below
[2017-10-19 06:26] LABS: ADD MAN DIFF? YES
[2017-10-19 06:34] LABS: ANION GAP 8 (8-16); BLOOD UREA NITROGEN 8 mg/dl (7-20); CALCIUM 7.6 mg/dl (8.4-10.2); CARBON DIOXIDE 28 mmol/L (21-31); CHLORIDE 104 mmol/L (97-110); CREATININE 0.44 mg/dl (0.44-1.00); GLUCOSE 134 mg/dl (70-220); MAGNESIUM 2.2 mg/dl (1.7-2.5); PHOSPHORUS 2.7 mg/dl (2.5-4.9); SODIUM 136 mmol/L (135-144)
[2017-10-19 10:27] LABS: ANISOCYTOSIS 1+ (0-0); BAND NEUTROPHILS #M 2.6 10^3/ul (0.0-0.6); BAND NEUTROPHILS % (M) 31 % (0-4); EOSINOPHILS % (M) 3 % (0-7); LYMPHOCYTES % (M) 12 % (15-51); METAMYELOCYTES #M 0.1 10^3/ul (0.0-0.0); METAMYELOCYTES %M 2 % (0-0); MICROCYTOSIS 1+ (0-0); MONOCYTE #M 0.3 10^3/ul (0.3-0.9); MONOCYTES % (M) 4 % (0-11); MYELOCYTES #M 0.1 10^3/ul (0.0-0.0); MYELOCYTES % (M) 2 % (0-0); PLATELET ESTIMATE NORMAL; POLYCHROMASIA 1+ (0-0); SEG NEUT #M 4.1 10^3/ul (1.6-7.5); SEGMENTED NEUTROPHILS (M) % 46 % (39-77); SMUDGE%M 3 % (0-0)
[2017-10-19] MEDS: TPN 1,000 ML IV (10:42)
[2017-10-19] MEDS: FAT EMULSION 20% 250 ML IV (10:42)
[2017-10-20] MEDS: PIPER-TAZO 3.375 GM IV (PMX) 100 ML IVPB ×4 (00:26→17:45)
[2017-10-20] MEDS: METOCLOPRAMIDE 10 MG INJ IV (00:29)
[2017-10-20] MEDS: METOPROLOL 5 MG INJ IV ×6 (00:35→21:00)
[2017-10-20] MEDS: ACCU-CHEK XX ×6 (00:37→21:33)
[2017-10-20] MEDS: HYDROmorphONE 0.5 MG/0.5 ML SYG IV (00:57)
[2017-10-20] MEDS: D5W-0.45 NACL + KCL 20 MEQ 1,000 ML IV ×4 (03:00→18:38)
[2017-10-20] MEDS: HYDROmorphONE 2 MG/ML SYG IV (04:06)
[2017-10-20] MEDS: PANTOPRAZOLE 40 MG INJ IV ×2 (05:21→17:45)
[2017-10-20] MEDS: TPN 1,000 ML IV ×2 (05:21→23:17)
[2017-10-20] MEDS: LEVOTHYROXINE 150 MCG TAB PO (05:22)
[2017-10-20] MEDS ORDERED: NEOSTIGMINE 3 MG/3 ML SYRINGE (06:21)
[2017-10-20] MEDS ORDERED: ROCURONIUM 50 MG INJ (06:21)
[2017-10-20] MEDS ORDERED: PROPOFOL 20 ML (06:21)
[2017-10-20] MEDS ORDERED: LIDOCAINE 2% (SDV) 5 ML INJ (06:21)
[2017-10-20] MEDS ORDERED: GLYCOPYRROLATE 0.4 MG INJ (06:21)
[2017-10-20] MEDS ORDERED: MIDAZOLAM 1 MG/ML 2 ML INJ ×2 (06:22→09:28)
[2017-10-20] MEDS ORDERED: DEXAMETHASONE 4 MG/ML 1 ML INJ (06:22)
[2017-10-20] MEDS ORDERED: FENTAnyl 50 MCG/ML VIAL ×2 (06:22→11:31)
[2017-10-20] MEDS ORDERED: ONDANSETRON 4 MG INJ (06:22)
[2017-10-20] MEDS ORDERED: NALOXONE (0.4 MG/ML) INJ IV ×2 (06:30→12:00)
[2017-10-20] MEDS ORDERED: SUCCINYLCHOLINE CHLORIDE 100 MG/5 ML SYG IV (06:39)
[2017-10-20] MEDS ORDERED: CEFAZOLIN 1 GM INJ (06:39)
[2017-10-20] MEDS ORDERED: metroNIDAZOLE 500 MG/100 ML NS IVPB (07:00)
[2017-10-20 07:54] LABS: MEAN CORPUSCULAR HEMOGLOBIN 26.3 pg (29.0-33.0); MEAN CORPUSCULAR VOLUME 84.8 fl (82.0-101.0); MEAN PLATELET VOLUME 10.1 fl (7.4-10.4); PLATELET COUNT 396 10^3/UL (140-415); RED BLOOD COUNT 3.42 10^6/ul (4.20-5.40); RED CELL DISTRIBUTION WIDTH 14.8 % (11.5-14.5)
[2017-10-20 07:54] LABS: WHITE BLOOD COUNT 8.1 10^3/ul (4.8-10.8)
[2017-10-20 08:07] LABS: ADD MAN DIFF? YES; POSITIVE DIFF @See below
[2017-10-20 08:17] LABS: ANION GAP 10 (8-16); BLOOD UREA NITROGEN 8 mg/dl (7-20); CALCIUM 7.5 mg/dl (8.4-10.2); CARBON DIOXIDE 24 mmol/L (21-31); CHLORIDE 104 mmol/L (97-110); CREATININE 0.41 mg/dl (0.44-1.00); GLUCOSE 122 mg/dl (70-220); POTASSIUM 4.4 mmol/L (3.5-5.1); SODIUM 134 mmol/L (135-144)
[2017-10-20 08:50] LABS: ANISOCYTOSIS 1+ (0-0); BAND NEUTROPHILS #M 1.9 10^3/ul (0.0-0.6); BAND NEUTROPHILS % (M) 24 % (0-4); EOSINOPHILS % (M) 3 % (0-7); LYMPHOCYTES % (M) 13 % (15-51); MONOCYTE #M 0.5 10^3/ul (0.3-0.9); MONOCYTES % (M) 7 % (0-11); PLATELET ESTIMATE NORMAL; POIKILOCYTOSIS 1+ (0-0); POLYCHROMASIA 1+ (0-0); SEG NEUT #M 4.4 10^3/ul (1.6-7.5); SEGMENTED NEUTROPHILS (M) % 53 % (39-77); SMUDGE%M 5 % (0-0)
[2017-10-20] MEDS: FAT EMULSION 20% 250 ML IV (09:00)
[2017-10-20] MEDS ORDERED: FUROSEMIDE 20 MG INJ (10:45)
[2017-10-20] MEDS ORDERED: SUGAMMADEX SODIUM 200 MG/2 ML VIAL IV (11:26)
[2017-10-20] MEDS: RACEPINEPHRINE 2.25%(NEB) 0.5 ML AMP HHN (12:00)
[2017-10-20] MEDS ORDERED: HALOPERIDOL 5 MG INJ IV (12:00)
[2017-10-20] MEDS ORDERED: METOCLOPRAMIDE 10 MG INJ IV (12:00)
[2017-10-20] MEDS ORDERED: MIDAZOLAM 1 MG/ML 2 ML INJ IV (12:00)
[2017-10-20] MEDS ORDERED: EPHEDrine SULFATE 50 MG/5 ML SYG IV (12:00)
[2017-10-20] MEDS ORDERED: KETOROLAC 30 MG INJ IV (12:00)
[2017-10-20] MEDS ORDERED: ALBUTEROL 0.083% (NEB) 2.5 MG/3 ML AMP HHN (12:00)
[2017-10-20] MEDS ORDERED: IPRATROPIUM (NEB) 0.5 MG/2.5 ML AMP HHN (12:00)
[2017-10-20] MEDS ORDERED: DIPHENHYDRAMINE 50 MG INJ IV (12:00)
[2017-10-20] MEDS ORDERED: LEVALBUTEROL (NEB) 0.63 MG/3 ML AMP HHN (12:00)
[2017-10-20] MEDS ORDERED: HYDROmorphONE 1 MG/5 ML IV SYRINGE IV (12:00)
[2017-10-20] MEDS ORDERED: TRIMETHOBENZAMIDE 100 MG/ML VIAL IM (12:00)
[2017-10-20] MEDS ORDERED: FENTAnyl 50 MCG/ML VIAL IV ×3 (12:00)
[2017-10-20] MEDS ORDERED: LABETALOL HCL 20MG INJ IV (12:00)
[2017-10-20] MEDS ORDERED: morphine (1 MG/ML) 10ML SYRINGE IV ×2 (12:00)
[2017-10-20] MEDS ORDERED: hydrALAzine 20 MG INJ IV (12:00)
[2017-10-20] MEDS ORDERED: ONDANSETRON 4 MG INJ IV ×2 (12:00→13:00)
[2017-10-20] MEDS: HYDROmorphONE 1 MG/5 ML IV SYRINGE IV ×3 (12:09→14:25)
[2017-10-20] MEDS: ONDANSETRON 4 MG INJ IV (12:10)
[2017-10-20] MEDS: MEPERIDINE 25 MG INJ IV (12:10)
[2017-10-20] MEDS: HYDROmorphONE 0.2 MG/ML PCA IV ×2 (12:12→23:06)
[2017-10-20] MEDS ORDERED: ACETAMINOPHEN 1000MG/100ML IV 100 ML IVPB (13:00)
[2017-10-20] MEDS ORDERED: morphine 1 MG/ML 30 ML (PCA) IV (13:00)
[2017-10-20] MEDS: ALBUMIN HUMAN 5% 250 ML IV (13:06)
[2017-10-20] MEDS: metroNIDAZOLE 500 MG/NS (PMX) 100 ML IVPB (18:28)
[2017-10-21] MEDS: METOPROLOL 5 MG INJ IV ×6 (00:08→20:57)
[2017-10-21] MEDS: PIPER-TAZO 3.375 GM IV (PMX) 100 ML IVPB ×4 (00:25→17:47)
[2017-10-21] MEDS: ACCU-CHEK XX ×6 (00:26→21:07)
[2017-10-21] MEDS: metroNIDAZOLE 500 MG/NS (PMX) 100 ML IVPB ×4 (01:11→21:03)
[2017-10-21] MEDS: D5W-0.45 NACL + KCL 20 MEQ 1,000 ML IV ×3 (02:25→22:25)
[2017-10-21] MEDS: PANTOPRAZOLE 40 MG INJ IV ×2 (05:47→17:47)
[2017-10-21] MEDS: LEVOTHYROXINE 150 MCG TAB PO (05:48)
[2017-10-21] MEDS: FAT EMULSION 20% 250 ML IV (09:05)
[2017-10-21 10:18] LABS: HEMATOCRIT 26.4 % (37.0-47.0); HEMOGLOBIN 8.2 g/dl (12.0-16.0); MEAN CORPUSCULAR HEMOGLOBIN 26.5 pg (29.0-33.0); MEAN CORPUSCULAR HGB CONC 31.1 g/dl (32.0-37.0); MEAN CORPUSCULAR VOLUME 85.2 fl (82.0-101.0); MEAN PLATELET VOLUME 9.8 fl (7.4-10.4); PLATELET COUNT 400 10^3/UL (140-415); RED CELL DISTRIBUTION WIDTH 15.5 % (11.5-14.5)
[2017-10-21 10:18] LABS: WHITE BLOOD COUNT 14.2 10^3/ul (4.8-10.8)
[2017-10-21 10:30] LABS: POSITIVE DIFF @See below
[2017-10-21 10:32] LABS: ADD MAN DIFF? YES
[2017-10-21 10:39] LABS: PARTIAL THROMBOPLASTIN TIME 29.3 Sec (25.0-35.0); PROTIME 15.4 Sec (11.9-14.9); PT RATIO 1.2
[2017-10-21 10:41] LABS: ANION GAP 8 (8-16); BLOOD UREA NITROGEN 12 mg/dl (7-20); CALCIUM 7.1 mg/dl (8.4-10.2); CARBON DIOXIDE 24 mmol/L (21-31); CHLORIDE 107 mmol/L (97-110); CREATININE 0.51 mg/dl (0.44-1.00); GLUCOSE 139 mg/dl (70-220); MAGNESIUM 1.8 mg/dl (1.7-2.5); PHOSPHORUS 2.8 mg/dl (2.5-4.9); POTASSIUM 4.1 mmol/L (3.5-5.1); SODIUM 135 mmol/L (135-144)
[2017-10-21 11:03] LABS: ANISOCYTOSIS 2+ (0-0); BAND NEUTROPHILS #M 1.4 10^3/ul (0.0-0.6); BAND NEUTROPHILS % (M) 10 % (0-4); EOSINOPHILS % (M) 1 % (0-7); GIANT THROMBO% (M) 1 % (0-0); LYMPHOCYTES #M 1.1 10^3/ul (0.8-2.9); LYMPHOCYTES % (M) 8 % (15-51); MICROCYTOSIS 1+ (0-0); MONOCYTE #M 0.2 10^3/ul (0.3-0.9); MONOCYTES % (M) 2 % (0-11); PLATELET ESTIMATE NORMAL; POIKILOCYTOSIS 1+ (0-0); POLYCHROMASIA 3+ (0-0); SEG NEUT #M 11.4 10^3/ul (1.6-7.5); SEGMENTED NEUTROPHILS (M) % 79 % (39-77); SMUDGE%M 22 % (0-0)
[2017-10-21] MEDS: HYDROmorphONE 0.2 MG/ML PCA IV (15:36)
[2017-10-21] MEDS: TPN 1,000 ML IV (17:46)
[2017-10-22] MEDS: ACCU-CHEK XX ×6 (01:00→22:02)
[2017-10-22] MEDS: METOPROLOL 5 MG INJ IV ×6 (01:19→21:57)
[2017-10-22] MEDS: PIPER-TAZO 3.375 GM IV (PMX) 100 ML IVPB ×5 (01:22→23:59)
[2017-10-22] MEDS: D5W-0.45 NACL + KCL 20 MEQ 1,000 ML IV ×2 (02:20→18:08)
[2017-10-22] MEDS: PANTOPRAZOLE 40 MG INJ IV ×2 (05:23→17:27)
[2017-10-22] MEDS: LEVOTHYROXINE 150 MCG TAB PO (05:27)
[2017-10-22] MEDS: metroNIDAZOLE 500 MG/NS (PMX) 100 ML IVPB ×3 (06:30→22:01)
[2017-10-22 08:18] LABS: ADD MAN DIFF? NO
[2017-10-22 08:20] LABS: WHITE BLOOD COUNT 11.3 10^3/ul (4.8-10.8)
[2017-10-22 08:20] LABS: BASOPHILS % 0.3 % (0.0-2.0); EOSINOPHILS # 0.2 10^3/ul (0.0-0.5); EOSINOPHILS % 1.6 % (0.0-7.0); HEMATOCRIT 22.8 % (37.0-47.0); LYMPHOCYTES % 8.5 % (15.0-51.0); MEAN CORPUSCULAR HEMOGLOBIN 25.7 pg (29.0-33.0); MEAN CORPUSCULAR HGB CONC 30.7 g/dl (32.0-37.0); MEAN CORPUSCULAR VOLUME 83.8 fl (82.0-101.0); MEAN PLATELET VOLUME 9.6 fl (7.4-10.4); MONOCYTE # 0.9 10^3/ul (0.3-0.9); MONOCYTES % 7.6 % (0.0-11.0); NEUTROPHIL # 8.7 10^3/ul (1.6-7.5); NEUTROPHILS % 77.5 % (39.0-77.0); PLATELET COUNT 426 10^3/UL (140-415); RED BLOOD COUNT 2.72 10^6/ul (4.20-5.40); RED CELL DISTRIBUTION WIDTH 15.5 % (11.5-14.5)
[2017-10-22 08:41] LABS: INR 1.16; PT RATIO 1.2
[2017-10-22 08:42] LABS: PARTIAL THROMBOPLASTIN TIME 32.7 Sec (25.0-35.0)
[2017-10-22 08:45] LABS: ANION GAP 7 (8-16)
[2017-10-22 08:49] LABS: BLOOD UREA NITROGEN 7 mg/dl (7-20); CALCIUM 7.4 mg/dl (8.4-10.2); CARBON DIOXIDE 27 mmol/L (21-31); CHLORIDE 106 mmol/L (97-110); CREATININE 0.48 mg/dl (0.44-1.00); GLUCOSE 123 mg/dl (70-220); MAGNESIUM 1.9 mg/dl (1.7-2.5); PHOSPHORUS 2.3 mg/dl (2.5-4.9); POTASSIUM 3.7 mmol/L (3.5-5.1); SODIUM 136 mmol/L (135-144)
[2017-10-22] MEDS: FAT EMULSION 20% 250 ML IV (09:18)
[2017-10-22] MEDS: HYDROmorphONE 0.2 MG/ML PCA IV (10:01)
[2017-10-22] MEDS: TPN 1,000 ML IV (11:50)
[2017-10-22 12:50] LABS: IMMEDIATE SPIN CROSSMATCH 1
[2017-10-22] MEDS: POTASSIUM PHOSPHATE 20 MEQ in SOD CHLORIDE 0.9% 250 ML IVPB (19:26)
[2017-10-22 23:22] LABS: IMMEDIATE SPIN CROSSMATCH 1 4
[2017-10-23] MEDS: ACCU-CHEK XX ×6 (01:00→21:00)
[2017-10-23] MEDS: METOPROLOL 5 MG INJ IV ×6 (01:05→20:57)
[2017-10-23] MEDS: POTASSIUM PHOSPHATE 20 MEQ in SOD CHLORIDE 0.9% 250 ML IVPB (03:02)
[2017-10-23] MEDS: D5W-0.45 NACL + KCL 20 MEQ 1,000 ML IV ×2 (04:25→11:10)
[2017-10-23] MEDS: HYDROmorphONE 0.2 MG/ML PCA IV (05:02)
[2017-10-23] MEDS: metroNIDAZOLE 500 MG/NS (PMX) 100 ML IVPB ×3 (05:13→22:09)
[2017-10-23] MEDS: PANTOPRAZOLE 40 MG INJ IV ×2 (05:13→17:56)
[2017-10-23] MEDS: TPN 1,000 ML IV ×2 (05:17→23:52)
[2017-10-23] MEDS: LEVOTHYROXINE 150 MCG TAB PO (05:44)
[2017-10-23] MEDS: PIPER-TAZO 3.375 GM IV (PMX) 100 ML IVPB ×4 (05:57→23:58)
[2017-10-23] MEDS: FAT EMULSION 20% 250 ML IV (09:07)
[2017-10-23 09:13] LABS: ABNORMAL IP MESSAGE 1; HEMATOCRIT 28.9 % (37.0-47.0); HEMOGLOBIN 9.3 g/dl (12.0-16.0); MEAN CORPUSCULAR HEMOGLOBIN 27.1 pg (29.0-33.0); MEAN CORPUSCULAR HGB CONC 32.2 g/dl (32.0-37.0); MEAN CORPUSCULAR VOLUME 84.3 fl (82.0-101.0); MEAN PLATELET VOLUME 9.4 fl (7.4-10.4); NUCLEATED RED BLOOD CELLS% 0.2 /100WBC (0.0-0.0); PLATELET COUNT 468 10^3/UL (140-415); RED BLOOD COUNT 3.43 10^6/ul (4.20-5.40); RED CELL DISTRIBUTION WIDTH 15.2 % (11.5-14.5)
[2017-10-23 09:20] LABS: ADD MAN DIFF? YES; POSITIVE DIFF @See below
[2017-10-23 09:33] LABS: INR 1.11; PROTIME 14.5 Sec (11.9-14.9); PT RATIO 1.1
[2017-10-23 09:34] LABS: PARTIAL THROMBOPLASTIN TIME 32.3 Sec (25.0-35.0)
[2017-10-23 09:47] LABS: ANION GAP 9 (8-16); BLOOD UREA NITROGEN 6 mg/dl (7-20); C-REACTIVE PROTEIN 6.9 mg/dl (0.0-0.9); CALCIUM 7.7 mg/dl (8.4-10.2); CARBON DIOXIDE 27 mmol/L (21-31); CHLORIDE 105 mmol/L (97-110); CREATININE 0.46 mg/dl (0.44-1.00); GLUCOSE 132 mg/dl (70-220); POTASSIUM 3.8 mmol/L (3.5-5.1); SODIUM 137 mmol/L (135-144)
[2017-10-23 09:48] LABS: PHOSPHORUS 3.4 mg/dl (2.5-4.9)
[2017-10-23 09:48] LABS: MAGNESIUM 1.9 mg/dl (1.7-2.5)
[2017-10-23 10:21] LABS: ERYTHROCYTE SEDIMENTATION RATE 61 mm/Hr (0-20)
[2017-10-23 10:43] LABS: ANISOCYTOSIS 1+ (0-0); BAND NEUTROPHILS #M 0.3 10^3/ul (0.0-0.6); BAND NEUTROPHILS % (M) 4 % (0-4); BASOPHILS % (M) 1 % (0-2); EOSINOPHILS % (M) 1 % (0-7); LYMPHOCYTES #M 0.2 10^3/ul (0.8-2.9); LYMPHOCYTES % (M) 3 % (15-51); METAMYELOCYTES %M 1 % (0-0); MICROCYTOSIS 1+ (0-0); MONOCYTE #M 0.3 10^3/ul (0.3-0.9); MONOCYTES % (M) 4 % (0-11); MYELOCYTES #M 0.4 10^3/ul (0.0-0.0); MYELOCYTES % (M) 5 % (0-0); PLATELET ESTIMATE NORMAL; POLYCHROMASIA 3+ (0-0); REACTIVE LYMPHOCYTES% (M) 1 % (0-0); SEG NEUT #M 7.2 10^3/ul (1.6-7.5); SEGMENTED NEUTROPHILS (M) % 80 % (39-77)
[2017-10-23] MEDS: METOCLOPRAMIDE 10 MG INJ IV (20:57)
[2017-10-23] MEDS: ALBUMIN HUMAN 25% 100 ML IV (20:58)
[2017-10-24] MEDS: ACCU-CHEK XX ×4 (01:00→21:00)
[2017-10-24] MEDS: D5W-0.45 NACL + KCL 20 MEQ 1,000 ML IV ×2 (01:30→10:25)
[2017-10-24] MEDS: METOPROLOL 5 MG INJ IV ×4 (01:30→11:49)
[2017-10-24] MEDS: LEVOTHYROXINE 100 MCG VIAL IV (05:35)
[2017-10-24] MEDS: PIPER-TAZO 3.375 GM IV (PMX) 100 ML IVPB ×3 (05:35→16:55)
[2017-10-24] MEDS: PANTOPRAZOLE 40 MG INJ IV ×2 (05:35→16:55)
[2017-10-24] MEDS: metroNIDAZOLE 500 MG/NS (PMX) 100 ML IVPB ×3 (06:14→23:03)
[2017-10-24] MEDS: HYDROmorphONE 0.2 MG/ML PCA IV (07:22)
[2017-10-24] MEDS: METOCLOPRAMIDE 10 MG INJ IV ×2 (07:53→22:59)
[2017-10-24] MEDS: FAT EMULSION 20% 250 ML IV (07:53)
[2017-10-24] MEDS: ALBUMIN HUMAN 25% 100 ML IV ×2 (07:54→23:25)
[2017-10-24 08:03] LABS: ABNORMAL IP MESSAGE 1; HEMATOCRIT 29.6 % (37.0-47.0); HEMOGLOBIN 9.6 g/dl (12.0-16.0); MEAN CORPUSCULAR HEMOGLOBIN 27.1 pg (29.0-33.0); MEAN CORPUSCULAR HGB CONC 32.4 g/dl (32.0-37.0); MEAN CORPUSCULAR VOLUME 83.6 fl (82.0-101.0); MEAN PLATELET VOLUME 8.9 fl (7.4-10.4); PLATELET COUNT 517 10^3/UL (140-415); RED BLOOD COUNT 3.54 10^6/ul (4.20-5.40); RED CELL DISTRIBUTION WIDTH 14.9 % (11.5-14.5)
[2017-10-24 08:03] LABS: WHITE BLOOD COUNT 7.4 10^3/ul (4.8-10.8)
[2017-10-24 08:10] LABS: ADD MAN DIFF? YES; POSITIVE DIFF @See below
[2017-10-24 08:22] LABS: ANION GAP 8 (8-16); BLOOD UREA NITROGEN 8 mg/dl (7-20); CARBON DIOXIDE 26 mmol/L (21-31); CHLORIDE 106 mmol/L (97-110); CREATININE 0.44 mg/dl (0.44-1.00); GLUCOSE 129 mg/dl (70-220); POTASSIUM 3.9 mmol/L (3.5-5.1); SODIUM 136 mmol/L (135-144)
[2017-10-24 08:25] LABS: PREALBUMIN 15.6 mg/dl (17.6-36.0)
[2017-10-24 09:44] LABS: BAND NEUTROPHILS #M 0.4 10^3/ul (0.0-0.6); BAND NEUTROPHILS % (M) 6 % (0-4); EOSINOPHILS % (M) 2 % (0-7); LYMPHOCYTES #M 0.4 10^3/ul (0.8-2.9); LYMPHOCYTES % (M) 6 % (15-51); METAMYELOCYTES #M 0.1 10^3/ul (0.0-0.0); METAMYELOCYTES %M 2 % (0-0); MONOCYTE #M 0.3 10^3/ul (0.3-0.9); MONOCYTES % (M) 5 % (0-11); MYELOCYTES #M 0.2 10^3/ul (0.0-0.0); MYELOCYTES % (M) 4 % (0-0); PLATELET ESTIMATE NORMAL; POLYCHROMASIA 1+ (0-0); REACTIVE LYMPHOCYTES #M 0.1 10^3/ul (0.0-0.0); REACTIVE LYMPHOCYTES% (M) 2 % (0-0); SEG NEUT #M 5.4 10^3/ul (1.6-7.5); SEGMENTED NEUTROPHILS (M) % 73 % (39-77); SMUDGE%M 2 % (0-0)
[2017-10-24] MEDS ORDERED: METOPROLOL 5 MG INJ IV (14:00)
[2017-10-24] MEDS: TPN 1,000 ML IV (16:55)
[2017-10-24] MEDS ORDERED: PHENAZOPYRIDINE 200 MG TAB PO (22:00)
[2017-10-25 00:42] LABS: ADD UMIC YES; UR ASCORBIC ACID NEGATIVE (NEGATIVE); UR BILIRUBIN (Dip) NEGATIVE (NEGATIVE); UR BLOOD (Dip) 1+ mg/dL (NEGATIVE); UR CLARITY CLEAR (CLEAR); UR COLOR STRAW (YELLOW); UR GLUCOSE (Dip) NEGATIVE (NEGATIVE); UR KETONES (Dip) NEGATIVE (NEGATIVE); UR LEUKOCYTE ESTERASE (Dip) NEGATIVE Leu/ul (NEGATIVE); UR NITRITE (Dip) NEGATIVE (NEGATIVE); UR RBC 1 /HPF (0-5); UR SPECIFIC GRAVITY (Dip) 1.006 (1.003-1.030); UR TOTAL PROTEIN (Dip) NEGATIVE (NEGATIVE); UR UROBILINOGEN (Dip) NEGATIVE (NEGATIVE); UR WBC 0 /HPF (0-5)
[2017-10-25] MEDS: PIPER-TAZO 3.375 GM IV (PMX) 100 ML IVPB ×4 (01:22→16:49)
[2017-10-25] MEDS: D5W-0.45 NACL + KCL 20 MEQ 1,000 ML IV ×3 (05:37→19:14)
[2017-10-25] MEDS: PANTOPRAZOLE 40 MG INJ IV ×2 (05:42→16:49)
[2017-10-25] MEDS: LEVOTHYROXINE 100 MCG VIAL IV (05:42)
[2017-10-25] MEDS: metroNIDAZOLE 500 MG/NS (PMX) 100 ML IVPB ×3 (05:48→22:55)
[2017-10-25] MEDS: METOCLOPRAMIDE 10 MG INJ IV ×2 (07:45→20:57)
[2017-10-25] MEDS: FAT EMULSION 20% 250 ML IV (07:46)
[2017-10-25] MEDS: ALBUMIN HUMAN 25% 100 ML IV ×2 (07:47→20:57)
[2017-10-25] MEDS: ACCU-CHEK XX ×2 (09:00→21:23)
[2017-10-25 10:17] LABS: ABNORMAL IP MESSAGE 1; HEMATOCRIT 29.9 % (37.0-47.0); HEMOGLOBIN 9.6 g/dl (12.0-16.0); MEAN CORPUSCULAR HEMOGLOBIN 27.2 pg (29.0-33.0); MEAN CORPUSCULAR HGB CONC 32.1 g/dl (32.0-37.0); MEAN CORPUSCULAR VOLUME 84.7 fl (82.0-101.0); PLATELET COUNT 521 10^3/UL (140-415); RED BLOOD COUNT 3.53 10^6/ul (4.20-5.40); RED CELL DISTRIBUTION WIDTH 15.1 % (11.5-14.5)
[2017-10-25 10:18] LABS: ADD MAN DIFF? YES; POSITIVE DIFF @See below
[2017-10-25 10:46] LABS: ANION GAP 11 (8-16); BLOOD UREA NITROGEN 9 mg/dl (7-20); CALCIUM 8.2 mg/dl (8.4-10.2); CARBON DIOXIDE 26 mmol/L (21-31); CHLORIDE 103 mmol/L (97-110); CREATININE 0.44 mg/dl (0.44-1.00); GLUCOSE 129 mg/dl (70-220); POTASSIUM 4.1 mmol/L (3.5-5.1); SODIUM 136 mmol/L (135-144)
[2017-10-25] MEDS: HYDROmorphONE 0.2 MG/ML PCA IV (10:47)
[2017-10-25 10:52] LABS: ANISOCYTOSIS 1+ (0-0); BAND NEUTROPHILS #M 0.8 10^3/ul (0.0-0.6); BAND NEUTROPHILS % (M) 10 % (0-4); BASOPHILS % (M) 1 % (0-2); EOSINOPHILS % (M) 2 % (0-7); GIANT THROMBO% (M) 1 % (0-0); LYMPHOCYTES #M 0.7 10^3/ul (0.8-2.9); LYMPHOCYTES % (M) 9 % (15-51); METAMYELOCYTES #M 0.1 10^3/ul (0.0-0.0); METAMYELOCYTES %M 2 % (0-0); MONOCYTE #M 0.4 10^3/ul (0.3-0.9); MONOCYTES % (M) 5 % (0-11); MYELOCYTES #M 0.4 10^3/ul (0.0-0.0); MYELOCYTES % (M) 5 % (0-0); PLATELET ESTIMATE INCREASED; POLYCHROMASIA 2+ (0-0); REACTIVE LYMPHOCYTES% (M) 1 % (0-0); SEG NEUT #M 5.3 10^3/ul (1.6-7.5); SEGMENTED NEUTROPHILS (M) % 65 % (39-77)
[2017-10-25 10:53] LABS: MAGNESIUM 1.8 mg/dl (1.7-2.5); TRIGLYCERIDES 177 mg/dl (0-149)
[2017-10-25 10:53] LABS: PHOSPHORUS 3.5 mg/dl (2.5-4.9)
[2017-10-25] MEDS: TPN 1,000 ML IV (11:58)
[2017-10-26] MEDS: PIPER-TAZO 3.375 GM IV (PMX) 100 ML IVPB ×4 (00:30→17:27)
[2017-10-26] MEDS: TPN 1,000 ML IV (05:14)
[2017-10-26] MEDS: PANTOPRAZOLE 40 MG INJ IV ×2 (05:21→17:27)
[2017-10-26] MEDS: metroNIDAZOLE 500 MG/NS (PMX) 100 ML IVPB ×3 (06:26→22:42)
[2017-10-26] MEDS: LEVOTHYROXINE 100 MCG VIAL IV (06:26)
[2017-10-26] MEDS: D5W-0.45 NACL + KCL 20 MEQ 1,000 ML IV (06:37)
[2017-10-26 06:54] LABS: ADD MAN DIFF? NO
[2017-10-26 07:00] LABS: BASOPHIL # 0.1 10^3/ul (0.0-0.1); BASOPHILS % 0.7 % (0.0-2.0); EOSINOPHILS # 0.2 10^3/ul (0.0-0.5); EOSINOPHILS % 2.4 % (0.0-7.0); HEMATOCRIT 31.2 % (37.0-47.0); HEMOGLOBIN 10.1 g/dl (12.0-16.0); LYMPHOCYTES # 0.9 10^3/ul (0.8-2.9); LYMPHOCYTES % 11.8 % (15.0-51.0); MEAN CORPUSCULAR HEMOGLOBIN 27.4 pg (29.0-33.0); MEAN CORPUSCULAR HGB CONC 32.4 g/dl (32.0-37.0); MEAN CORPUSCULAR VOLUME 84.6 fl (82.0-101.0); MONOCYTE # 0.6 10^3/ul (0.3-0.9); MONOCYTES % 8.3 % (0.0-11.0); NEUTROPHIL # 5.2 10^3/ul (1.6-7.5); NEUTROPHILS % 72.4 % (39.0-77.0); PLATELET COUNT 493 10^3/UL (140-415); RED BLOOD COUNT 3.69 10^6/ul (4.20-5.40); RED CELL DISTRIBUTION WIDTH 15.4 % (11.5-14.5)
[2017-10-26 07:00] LABS: WHITE BLOOD COUNT 7.2 10^3/ul (4.8-10.8)
[2017-10-26 07:21] LABS: ANION GAP 11 (8-16); BLOOD UREA NITROGEN 11 mg/dl (7-20); CALCIUM 8.8 mg/dl (8.4-10.2); CARBON DIOXIDE 28 mmol/L (21-31); CHLORIDE 104 mmol/L (97-110); CREATININE 0.48 mg/dl (0.44-1.00); GLUCOSE 129 mg/dl (70-220); POTASSIUM 3.8 mmol/L (3.5-5.1); SODIUM 139 mmol/L (135-144)
[2017-10-26] MEDS: ACCU-CHEK XX ×2 (09:48→20:32)
[2017-10-26] MEDS: METOCLOPRAMIDE 10 MG INJ IV ×3 (09:49→20:16)
[2017-10-26] MEDS: FAT EMULSION 20% 250 ML IV (09:50)
[2017-10-26] MEDS: ALBUMIN HUMAN 25% 100 ML IV (09:50)
[2017-10-26] MEDS: HYDROmorphONE 0.2 MG/ML PCA IV (16:56)
[2017-10-27] MEDS: PIPER-TAZO 3.375 GM IV (PMX) 100 ML IVPB ×4 (00:34→18:32)
[2017-10-27] MEDS: TPN 1,000 ML IV ×2 (01:17→20:09)
[2017-10-27] MEDS: PANTOPRAZOLE 40 MG INJ IV ×2 (05:41→18:32)
[2017-10-27] MEDS: LEVOTHYROXINE 100 MCG VIAL IV (05:41)
[2017-10-27] MEDS: metroNIDAZOLE 500 MG/NS (PMX) 100 ML IVPB ×2 (06:34→14:01)
[2017-10-27] MEDS: D5W-0.45 NACL + KCL 20 MEQ 1,000 ML IV (06:38)
[2017-10-27 07:10] LABS: MAGNESIUM 1.9 mg/dl (1.7-2.5)
[2017-10-27 07:10] LABS: PHOSPHORUS 3.3 mg/dl (2.5-4.9)
[2017-10-27 07:11] LABS: ANION GAP 14 (8-16); BLOOD UREA NITROGEN 11 mg/dl (7-20); CALCIUM 8.6 mg/dl (8.4-10.2); CARBON DIOXIDE 24 mmol/L (21-31); CHLORIDE 105 mmol/L (97-110); CREATININE 0.46 mg/dl (0.44-1.00); GLUCOSE 130 mg/dl (70-220); POTASSIUM 3.7 mmol/L (3.5-5.1); SODIUM 139 mmol/L (135-144)
[2017-10-27] MEDS: FAT EMULSION 20% 250 ML IV (09:16)
[2017-10-27] MEDS: METOCLOPRAMIDE 10 MG INJ IV ×3 (09:16→20:09)
[2017-10-27] MEDS: ACCU-CHEK XX ×2 (09:25→20:33)
[2017-10-28] MEDS: PIPER-TAZO 3.375 GM IV (PMX) 100 ML IVPB ×4 (00:21→18:23)
[2017-10-28] MEDS: D5W-0.45 NACL + KCL 20 MEQ 1,000 ML IV (04:18)
[2017-10-28] MEDS: PANTOPRAZOLE 40 MG INJ IV ×2 (06:04→18:23)
[2017-10-28] MEDS: LEVOTHYROXINE 100 MCG VIAL IV (06:04)
[2017-10-28 07:06] LABS: ANION GAP 13 (8-16); BLOOD UREA NITROGEN 11 mg/dl (7-20); CALCIUM 8.3 mg/dl (8.4-10.2); CARBON DIOXIDE 24 mmol/L (21-31); CHLORIDE 107 mmol/L (97-110); CREATININE 0.44 mg/dl (0.44-1.00); GLUCOSE 137 mg/dl (70-220); POTASSIUM 3.9 mmol/L (3.5-5.1); SODIUM 140 mmol/L (135-144)
[2017-10-28] MEDS: METOCLOPRAMIDE 10 MG INJ IV ×3 (08:15→21:03)
[2017-10-28] MEDS: ACCU-CHEK XX ×2 (08:15→21:08)
[2017-10-28] MEDS: FAT EMULSION 20% 250 ML IV (09:31)
[2017-10-28] MEDS: TPN 1,000 ML IV (12:40)
[2017-10-29] MEDS: PIPER-TAZO 3.375 GM IV (PMX) 100 ML IVPB ×5 (00:14→23:43)
[2017-10-29] MEDS: PANTOPRAZOLE 40 MG INJ IV ×2 (05:28→17:24)
[2017-10-29] MEDS: LEVOTHYROXINE 100 MCG VIAL IV (05:28)
[2017-10-29] MEDS: TPN 1,000 ML IV (08:29)
[2017-10-29] MEDS: METOCLOPRAMIDE 10 MG INJ IV ×3 (08:29→21:20)
[2017-10-29] MEDS: FAT EMULSION 20% 250 ML IV (08:36)
[2017-10-29] MEDS: ACCU-CHEK XX (09:45)
[2017-10-29 09:54] LABS: MAGNESIUM 1.9 mg/dl (1.7-2.5)
[2017-10-29 09:54] LABS: PHOSPHORUS 3.7 mg/dl (2.5-4.9)
[2017-10-29 09:57] LABS: ANION GAP 15 (8-16); BLOOD UREA NITROGEN 11 mg/dl (7-20); CALCIUM 8.5 mg/dl (8.4-10.2); CARBON DIOXIDE 24 mmol/L (21-31); CHLORIDE 106 mmol/L (97-110); CREATININE 0.46 mg/dl (0.44-1.00); GLUCOSE 107 mg/dl (70-220); POTASSIUM 3.6 mmol/L (3.5-5.1); SODIUM 141 mmol/L (135-144)
[2017-10-29] MEDS: HYDROmorphONE 0.2 MG/ML PCA IV (15:19)
[2017-10-30] MEDS: FAT EMULSION 20% 250 ML IV (02:00)
[2017-10-30] MEDS: TPN 1,000 ML IV ×2 (04:03→20:07)
[2017-10-30] MEDS: PANTOPRAZOLE 40 MG INJ IV ×2 (05:14→18:48)
[2017-10-30] MEDS: PIPER-TAZO 3.375 GM IV (PMX) 100 ML IVPB ×3 (05:14→18:48)
[2017-10-30] MEDS: LEVOTHYROXINE 100 MCG VIAL IV (05:14)
[2017-10-30 07:43] LABS: ANION GAP 14 (8-16); BLOOD UREA NITROGEN 13 mg/dl (7-20); CALCIUM 8.4 mg/dl (8.4-10.2); CARBON DIOXIDE 23 mmol/L (21-31); CHLORIDE 108 mmol/L (97-110); CREATININE 0.49 mg/dl (0.44-1.00); GLUCOSE 135 mg/dl (70-220); POTASSIUM 3.8 mmol/L (3.5-5.1); SODIUM 141 mmol/L (135-144)
[2017-10-30] MEDS: METOCLOPRAMIDE 10 MG INJ IV ×3 (08:36→20:17)
[2017-10-31] MEDS: PIPER-TAZO 3.375 GM IV (PMX) 100 ML IVPB ×5 (00:12→23:49)
[2017-10-31] MEDS: PANTOPRAZOLE 40 MG INJ IV (05:27)
[2017-10-31] MEDS: LEVOTHYROXINE 150 MCG TAB PO (07:21)
[2017-10-31] MEDS: METOCLOPRAMIDE 10 MG INJ IV ×2 (08:12→12:36)
[2017-10-31] MEDS: HYDROCODONE/APAP (10/325) TAB PO ×2 (16:48→23:42)
[2017-10-31] MEDS: PANTOPRAZOLE (EC) 40 MG TAB PO (17:47)
[2017-10-31] MEDS ORDERED: METOCLOPRAMIDE 10 MG TAB PO (21:00)
[2017-10-31] MEDS: METOCLOPRAMIDE 10 MG TAB PO (21:10)
[2017-11-01] MEDS: PANTOPRAZOLE (EC) 40 MG TAB PO ×2 (05:52→18:10)
[2017-11-01] MEDS: LEVOTHYROXINE 150 MCG TAB PO (05:52)
[2017-11-01] MEDS: PIPER-TAZO 3.375 GM IV (PMX) 100 ML IVPB ×4 (05:56→23:33)
[2017-11-01 06:42] LABS: ADD MAN DIFF? NO
[2017-11-01 06:48] LABS: WHITE BLOOD COUNT 5.9 10^3/ul (4.8-10.8)
[2017-11-01 06:48] LABS: BASOPHILS % 0.5 % (0.0-2.0); EOSINOPHILS # 0.3 10^3/ul (0.0-0.5); EOSINOPHILS % 4.2 % (0.0-7.0); HEMATOCRIT 30.4 % (37.0-47.0); HEMOGLOBIN 9.8 g/dl (12.0-16.0); IMMATURE GRANS #M 0.06 10^3/ul; LYMPHOCYTES # 0.9 10^3/ul (0.8-2.9); LYMPHOCYTES % 15.6 % (15.0-51.0); MEAN CORPUSCULAR HEMOGLOBIN 27.6 pg (29.0-33.0); MEAN CORPUSCULAR HGB CONC 32.2 g/dl (32.0-37.0); MEAN CORPUSCULAR VOLUME 85.6 fl (82.0-101.0); MEAN PLATELET VOLUME 9.7 fl (7.4-10.4); MONOCYTE # 0.5 10^3/ul (0.3-0.9); NEUTROPHIL # 4.1 10^3/ul (1.6-7.5); NEUTROPHILS % 69.7 % (39.0-77.0); PLATELET COUNT 338 10^3/UL (140-415); RED BLOOD COUNT 3.55 10^6/ul (4.20-5.40); RED CELL DISTRIBUTION WIDTH 16.7 % (11.5-14.5)
[2017-11-01 07:07] LABS: ANION GAP 13 (8-16); BLOOD UREA NITROGEN 13 mg/dl (7-20); CALCIUM 8.7 mg/dl (8.4-10.2); CARBON DIOXIDE 24 mmol/L (21-31); CHLORIDE 107 mmol/L (97-110); CREATININE 0.53 mg/dl (0.44-1.00); GLUCOSE 96 mg/dl (70-220); POTASSIUM 3.7 mmol/L (3.5-5.1); SODIUM 140 mmol/L (135-144)
[2017-11-01] MEDS: METOCLOPRAMIDE 10 MG TAB PO ×3 (07:49→20:41)
[2017-11-01] MEDS: ALTEPLASE (CATHFLO) 2 MG INJ CATHETER (10:27)
[2017-11-01] MEDS: HYDROCODONE/APAP (10/325) TAB PO ×2 (14:11→23:27)
[2017-11-02 05:50] LABS: ADD MAN DIFF? NO
[2017-11-02] MEDS: PANTOPRAZOLE (EC) 40 MG TAB PO ×2 (05:52→19:05)
[2017-11-02] MEDS: PIPER-TAZO 3.375 GM IV (PMX) 100 ML IVPB ×3 (05:53→19:05)
[2017-11-02 05:59] LABS: BASOPHILS % 0.5 % (0.0-2.0); EOSINOPHILS # 0.3 10^3/ul (0.0-0.5); EOSINOPHILS % 5.2 % (0.0-7.0); HEMATOCRIT 30.3 % (37.0-47.0); HEMOGLOBIN 9.7 g/dl (12.0-16.0); IMMATURE GRANS #M 0.05 10^3/ul; IMMATURE GRANS % (M) 0.9 %; LYMPHOCYTES # 1.2 10^3/ul (0.8-2.9); LYMPHOCYTES % 20.5 % (15.0-51.0); MEAN CORPUSCULAR HEMOGLOBIN 27.4 pg (29.0-33.0); MEAN CORPUSCULAR VOLUME 85.6 fl (82.0-101.0); MEAN PLATELET VOLUME 9.8 fl (7.4-10.4); MONOCYTE # 0.6 10^3/ul (0.3-0.9); MONOCYTES % 9.7 % (0.0-11.0); NEUTROPHIL # 3.6 10^3/ul (1.6-7.5); NEUTROPHILS % 63.2 % (39.0-77.0); PLATELET COUNT 328 10^3/UL (140-415); RED BLOOD COUNT 3.54 10^6/ul (4.20-5.40); RED CELL DISTRIBUTION WIDTH 17.2 % (11.5-14.5)
[2017-11-02 05:59] LABS: WHITE BLOOD COUNT 5.8 10^3/ul (4.8-10.8)
[2017-11-02 06:20] LABS: ANION GAP 14 (8-16); BLOOD UREA NITROGEN 11 mg/dl (7-20); CALCIUM 8.8 mg/dl (8.4-10.2); CARBON DIOXIDE 25 mmol/L (21-31); CHLORIDE 107 mmol/L (97-110); CREATININE 0.64 mg/dl (0.44-1.00); GLUCOSE 97 mg/dl (70-220); POTASSIUM 3.9 mmol/L (3.5-5.1); SODIUM 142 mmol/L (135-144)
[2017-11-02] MEDS: LEVOTHYROXINE 150 MCG TAB PO (06:27)
[2017-11-02] MEDS: METOCLOPRAMIDE 10 MG TAB PO ×3 (09:00→20:12)
[2017-11-02] MEDS: HYDROCODONE/APAP (10/325) TAB PO (12:49)
[2017-11-03] MEDS: HYDROCODONE/APAP (10/325) TAB PO ×3 (00:01→23:43)
[2017-11-03] MEDS: PIPER-TAZO 3.375 GM IV (PMX) 100 ML IVPB (00:09)
[2017-11-03 05:07] LABS: ADD MAN DIFF? NO
[2017-11-03 05:11] LABS: BASOPHILS % 0.5 % (0.0-2.0); EOSINOPHILS # 0.3 10^3/ul (0.0-0.5); EOSINOPHILS % 6.3 % (0.0-7.0); HEMATOCRIT 29.8 % (37.0-47.0); HEMOGLOBIN 9.3 g/dl (12.0-16.0); LYMPHOCYTES # 0.9 10^3/ul (0.8-2.9); LYMPHOCYTES % 19.9 % (15.0-51.0); MEAN CORPUSCULAR HEMOGLOBIN 26.9 pg (29.0-33.0); MEAN CORPUSCULAR HGB CONC 31.2 g/dl (32.0-37.0); MEAN CORPUSCULAR VOLUME 86.1 fl (82.0-101.0); MEAN PLATELET VOLUME 9.7 fl (7.4-10.4); MONOCYTE # 0.5 10^3/ul (0.3-0.9); MONOCYTES % 11.8 % (0.0-11.0); NEUTROPHIL # 2.7 10^3/ul (1.6-7.5); NEUTROPHILS % 61.3 % (39.0-77.0); PLATELET COUNT 312 10^3/UL (140-415); RED BLOOD COUNT 3.46 10^6/ul (4.20-5.40); RED CELL DISTRIBUTION WIDTH 17.4 % (11.5-14.5)
[2017-11-03 05:11] LABS: WHITE BLOOD COUNT 4.4 10^3/ul (4.8-10.8)
[2017-11-03 05:32] LABS: ANION GAP 13 (8-16); BLOOD UREA NITROGEN 8 mg/dl (7-20); CALCIUM 8.9 mg/dl (8.4-10.2); CARBON DIOXIDE 25 mmol/L (21-31); CHLORIDE 108 mmol/L (97-110); CREATININE 0.57 mg/dl (0.44-1.00); GLUCOSE 100 mg/dl (70-220); POTASSIUM 3.6 mmol/L (3.5-5.1); SODIUM 142 mmol/L (135-144)
[2017-11-03] MEDS: LEVOTHYROXINE 150 MCG TAB PO (05:53)
[2017-11-03] MEDS: PANTOPRAZOLE (EC) 40 MG TAB PO ×2 (05:53→18:03)
[2017-11-03] MEDS: METOCLOPRAMIDE 10 MG TAB PO ×3 (09:37→20:52)
[2017-11-04 05:08] LABS: ADD MAN DIFF? NO; BASOPHILS % 0.4 % (0.0-2.0); EOSINOPHILS # 0.3 10^3/ul (0.0-0.5); EOSINOPHILS % 6.2 % (0.0-7.0); HEMOGLOBIN 9.3 g/dl (12.0-16.0); LYMPHOCYTES # 1.3 10^3/ul (0.8-2.9); LYMPHOCYTES % 26.8 % (15.0-51.0); MEAN CORPUSCULAR HEMOGLOBIN 26.8 pg (29.0-33.0); MEAN CORPUSCULAR VOLUME 86.5 fl (82.0-101.0); MEAN PLATELET VOLUME 9.6 fl (7.4-10.4); MONOCYTE # 0.6 10^3/ul (0.3-0.9); MONOCYTES % 12.2 % (0.0-11.0); NEUTROPHIL # 2.5 10^3/ul (1.6-7.5); PLATELET COUNT 323 10^3/UL (140-415); RED BLOOD COUNT 3.47 10^6/ul (4.20-5.40); RED CELL DISTRIBUTION WIDTH 17.7 % (11.5-14.5)
[2017-11-04 05:08] LABS: WHITE BLOOD COUNT 4.7 10^3/ul (4.8-10.8)
[2017-11-04 05:31] LABS: ANION GAP 12 (8-16); BLOOD UREA NITROGEN 8 mg/dl (7-20); CALCIUM 9.1 mg/dl (8.4-10.2); CARBON DIOXIDE 26 mmol/L (21-31); CHLORIDE 107 mmol/L (97-110); CREATININE 0.48 mg/dl (0.44-1.00); GLUCOSE 100 mg/dl (70-220); POTASSIUM 3.8 mmol/L (3.5-5.1); SODIUM 141 mmol/L (135-144)
[2017-11-04] MEDS: PANTOPRAZOLE (EC) 40 MG TAB PO (06:11)
[2017-11-04] MEDS: LEVOTHYROXINE 150 MCG TAB PO (06:11)
[2017-11-04] MEDS: METOCLOPRAMIDE 10 MG TAB PO ×2 (09:18→13:00)
== END 2017-11-04 17:25 | disposition home or self-care (01) | DRG 459 ==
LOC: REC 12:56 → MS1 11-02 01:00 → TEL 10-10 17:28 → ICU 20:52
PROC: 0SG10A0 Fusion of 2 or more Lumbar Vertebral Joints with Interbody Fusion Device, Anterior Approach, Anterior Column, Open Approach (ICD-10-PCS; principal; 2017-10-07 15:00)
PROC: 0SG30A0 Fusion of Lumbosacral Joint with Interbody Fusion Device, Anterior Approach, Anterior Column, Open Approach (ICD-10-PCS; 2017-10-07 15:00)
PROC: 0SB20ZZ Excision of Lumbar Vertebral Disc, Open Approach (ICD-10-PCS; 2017-10-07 15:00)
PROC: 0SB40ZZ Excision of Lumbosacral Disc, Open Approach (ICD-10-PCS; 2017-10-07 15:00)
PROC: 0SH00BZ Insertion of Interspinous Process Spinal Stabilization Device into Lumbar Vertebral Joint, Open Approach (ICD-10-PCS; 2017-10-07 15:51)
PROC: 0SH30BZ Insertion of Interspinous Process Spinal Stabilization Device into Lumbosacral Joint, Open Approach (ICD-10-PCS; 2017-10-07 15:51)
PROC: 0DB80ZZ Excision of Small Intestine, Open Approach (ICD-10-PCS; 2017-10-07 15:51)
PROC: 0DQV0ZZ Repair Mesentery, Open Approach (ICD-10-PCS; 2017-10-07 15:51)
PROC: 0UB00ZZ Excision of Right Ovary, Open Approach (ICD-10-PCS; 2017-10-07 15:51)
PROC: 0W9H30Z Drainage of Retroperitoneum with Drainage Device, Percutaneous Approach (ICD-10-PCS; 2017-10-07 15:51)
PROC: 02HV33Z Insertion of Infusion Device into Superior Vena Cava, Percutaneous Approach (ICD-10-PCS; 2017-10-07 15:51)
PROC: 30233N1 Transfusion of Nonautologous Red Blood Cells into Peripheral Vein, Percutaneous Approach (ICD-10-PCS; 2017-10-07 15:51)
PROC: 30233K1 Transfusion of Nonautologous Frozen Plasma into Peripheral Vein, Percutaneous Approach (ICD-10-PCS; 2017-10-07 15:51)
DX: M47.26 Other spondylosis with radiculopathy, lumbar region (principal); A41.9 Sepsis, unspecified organism; K63.1 Perforation of intestine (nontraumatic); K68.19 Other retroperitoneal abscess; K56.7 Ileus, unspecified; K45.0 Other specified abdominal hernia with obstruction, without gangrene; I47.1 Supraventricular tachycardia; N83.201 Unspecified ovarian cyst, right side; E03.9 Hypothyroidism, unspecified; D64.9 Anemia, unspecified; E83.51 Hypocalcemia; E83.39 Other disorders of phosphorus metabolism; I10 Essential (primary) hypertension
CPT/HCPCS: 36430; 36569; 71045; 72114; 72131; 74018; 74177; 74178; 76937; 77012; 80048; 80053; 81001; 82962; 83605; 83735; 84100; 84134; 84443; 84478; 84484; 84703; 85014; 85018; 85025; 85610; 85651; 85730; 86140; 86850; 86900; 86901; 86920; 87070; 87075; 87081; 87086; 88304; 88305; 93005; 93306; 97110; 97116; 97161; 97164; 97530

== ENCOUNTER 2017-11-10 18:17 | Emergency (ER) | payer OTHER ==
[2017-11-10 20:50] LABS: URINE PH (Dip) POC 6.5 (5.0-8.5)
[2017-11-10 20:50] LABS: URINE BLOOD (Dip) POC Trace-lysed (NEGATIVE); URINE GLUCOSE (Dip) POC Negative (NEGATIVE); URINE KETONES (Dip) POC Negative (NEGATIVE); URINE LEUKOCYTE EST (Dip) POC 1+ (NEGATIVE); URINE NITRITE (Dip) POC Negative (NEGATIVE); URINE TOTAL PROTEIN POC Negative (NEGATIVE)
[2017-11-10 21:15] LABS: ADD MAN DIFF? NO
[2017-11-10] MEDS: ONDANSETRON 4 MG INJ IV (21:15)
[2017-11-10] MEDS: HYDROmorphONE 1 MG/ML SYG IV (21:15)
[2017-11-10 21:16] LABS: BASOPHILS % 0.2 % (0.0-2.0); EOSINOPHILS # 0.2 10^3/ul (0.0-0.5); EOSINOPHILS % 2.6 % (0.0-7.0); HEMATOCRIT 32.5 % (37.0-47.0); LYMPHOCYTES # 1.4 10^3/ul (0.8-2.9); LYMPHOCYTES % 22.5 % (15.0-51.0); MEAN CORPUSCULAR HEMOGLOBIN 27.2 pg (29.0-33.0); MEAN CORPUSCULAR HGB CONC 30.8 g/dl (32.0-37.0); MEAN CORPUSCULAR VOLUME 88.3 fl (82.0-101.0); MONOCYTE # 0.6 10^3/ul (0.3-0.9); MONOCYTES % 9.4 % (0.0-11.0); NEUTROPHIL # 3.9 10^3/ul (1.6-7.5); NEUTROPHILS % 64.8 % (39.0-77.0); PLATELET COUNT 375 10^3/UL (140-415); RED BLOOD COUNT 3.68 10^6/ul (4.20-5.40); RED CELL DISTRIBUTION WIDTH 17.8 % (11.5-14.5)
[2017-11-10 21:16] LABS: WHITE BLOOD COUNT 6.1 10^3/ul (4.8-10.8)
[2017-11-10] MEDS: SOD CHLORIDE 0.9% 1,000 ML IV (21:16)
[2017-11-10 21:24] LABS: ADD UMIC YES; UR ASCORBIC ACID 40 mg/dL (NEGATIVE); UR BACTERIA FEW /HPF (NONE SEEN); UR BILIRUBIN (Dip) NEGATIVE (NEGATIVE); UR BLOOD (Dip) NEGATIVE (NEGATIVE); UR CLARITY CLEAR (CLEAR); UR COLOR YELLOW (YELLOW); UR GLUCOSE (Dip) NEGATIVE (NEGATIVE); UR KETONES (Dip) NEGATIVE (NEGATIVE); UR LEUKOCYTE ESTERASE (Dip) 1+ Leu/ul (NEGATIVE); UR NITRITE (Dip) NEGATIVE (NEGATIVE); UR RBC 1 /HPF (0-5); UR TOTAL PROTEIN (Dip) NEGATIVE (NEGATIVE); UR UROBILINOGEN (Dip) NEGATIVE (NEGATIVE); UR WBC 23 /HPF (0-5)
[2017-11-10 21:57] LABS: ALANINE AMINOTRANSFERASE 53 IU/L (13-69); ALBUMIN 3.8 g/dl (3.3-4.9); ALBUMIN/GLOBULIN RATIO 1.08; ALKALINE PHOSPHATASE 116 IU/L (42-121); ANION GAP 13 (8-16); ASPARTATE AMINO TRANSFERASE 66 IU/L (15-46); BILIRUBIN,INDIRECT 0.2 mg/dl (0-1.1); BILIRUBIN,TOTAL 0.2 mg/dl (0.2-1.3); BLOOD UREA NITROGEN 9 mg/dl (7-20); CALCIUM 9.3 mg/dl (8.4-10.2); CARBON DIOXIDE 27 mmol/L (21-31); CHLORIDE 106 mmol/L (97-110); CREATININE 0.55 mg/dl (0.44-1.00); GLUCOSE 91 mg/dl (70-220); LIPASE 476 U/L (23-300); POTASSIUM 3.9 mmol/L (3.5-5.1); SODIUM 142 mmol/L (135-144); TOTAL PROTEIN 7.3 g/dl (6.1-8.1)
[2017-11-10 22:10] LABS: INR 1.11; PROTIME 14.5 Sec (11.9-14.9); PT RATIO 1.1
[2017-11-10 22:11] LABS: PARTIAL THROMBOPLASTIN TIME 27.5 Sec (25.0-35.0)
[2017-11-10] MEDS: CEFTRIAXONE 1 GM/50 ML (PMX) 50 ML IVPB (23:18)
== END 2017-11-10 23:55 | disposition home or self-care (01) ==
LOC: E/R 18:17
DX: G44.209 Tension-type headache, unspecified, not intractable (principal); N30.00 Acute cystitis without hematuria; G89.18 Other acute postprocedural pain; I10 Essential (primary) hypertension; E03.9 Hypothyroidism, unspecified; E66.9 Obesity, unspecified; R10.9 Unspecified abdominal pain
CPT/HCPCS: 36415; 74176; 80053; 81001; 81003; 83690; 84703; 85025; 85610; 85730; 96374; 96375; 99285-25

== ENCOUNTER 2017-11-20 18:49 | Inpatient (IN) | payer OTHER ==
[2017-11-20] MEDS: SOD CHLORIDE 0.9% 1,000 ML IV (19:32)
[2017-11-20] MEDS: morphine 4 MG/ML VIAL IV (19:32)
[2017-11-20] MEDS: ONDANSETRON 4 MG INJ IV (19:32)
[2017-11-20 19:38] LABS: ADD MAN DIFF? NO
[2017-11-20 19:40] LABS: BASOPHILS % 0.3 % (0.0-2.0); EOSINOPHILS # 0.3 10^3/ul (0.0-0.5); EOSINOPHILS % 2.9 % (0.0-7.0); HEMATOCRIT 34.3 % (37.0-47.0); HEMOGLOBIN 10.6 g/dl (12.0-16.0); LYMPHOCYTES # 1.6 10^3/ul (0.8-2.9); LYMPHOCYTES % 18.3 % (15.0-51.0); MEAN CORPUSCULAR HEMOGLOBIN 26.2 pg (29.0-33.0); MEAN CORPUSCULAR HGB CONC 30.9 g/dl (32.0-37.0); MEAN CORPUSCULAR VOLUME 84.7 fl (82.0-101.0); MEAN PLATELET VOLUME 9.4 fl (7.4-10.4); MONOCYTE # 0.6 10^3/ul (0.3-0.9); MONOCYTES % 7.2 % (0.0-11.0); NEUTROPHIL # 6.3 10^3/ul (1.6-7.5); NEUTROPHILS % 70.9 % (39.0-77.0); PLATELET COUNT 453 10^3/UL (140-415); RED BLOOD COUNT 4.05 10^6/ul (4.20-5.40); RED CELL DISTRIBUTION WIDTH 16.1 % (11.5-14.5)
[2017-11-20 19:40] LABS: WHITE BLOOD COUNT 8.9 10^3/ul (4.8-10.8)
[2017-11-20 19:58] LABS: ALANINE AMINOTRANSFERASE 49 IU/L (13-69); ALBUMIN 4.3 g/dl (3.3-4.9); ALKALINE PHOSPHATASE 111 IU/L (42-121); ANION GAP 15 (8-16); ASPARTATE AMINO TRANSFERASE 33 IU/L (15-46); BILIRUBIN,INDIRECT 0.3 mg/dl (0-1.1); BILIRUBIN,TOTAL 0.3 mg/dl (0.2-1.3); BLOOD UREA NITROGEN 11 mg/dl (7-20); CALCIUM 9.8 mg/dl (8.4-10.2); CARBON DIOXIDE 26 mmol/L (21-31); CHLORIDE 104 mmol/L (97-110); CREATININE 0.53 mg/dl (0.44-1.00); GLUCOSE 124 mg/dl (70-220); LIPASE 461 U/L (23-300); POTASSIUM 3.9 mmol/L (3.5-5.1); SODIUM 141 mmol/L (135-144); TOTAL PROTEIN 8.6 g/dl (6.1-8.1)
[2017-11-20 20:24] LABS: ADD UMIC NO; UR ASCORBIC ACID NEGATIVE (NEGATIVE); UR BILIRUBIN (Dip) NEGATIVE (NEGATIVE); UR BLOOD (Dip) NEGATIVE (NEGATIVE); UR CLARITY CLEAR (CLEAR); UR COLOR STRAW (YELLOW); UR GLUCOSE (Dip) NEGATIVE (NEGATIVE); UR KETONES (Dip) NEGATIVE (NEGATIVE); UR LEUKOCYTE ESTERASE (Dip) NEGATIVE Leu/ul (NEGATIVE); UR NITRITE (Dip) NEGATIVE (NEGATIVE); UR SPECIFIC GRAVITY (Dip) 1.004 (1.003-1.030); UR TOTAL PROTEIN (Dip) NEGATIVE (NEGATIVE); UR UROBILINOGEN (Dip) NEGATIVE (NEGATIVE)
[2017-11-21] MEDS ORDERED: VANCOMYCIN IV PER PHARMACY XX (03:00)
[2017-11-21] MEDS ORDERED: METOPROLOL 25 MG TAB PO (03:00)
[2017-11-21] MEDS ORDERED: PENDING SANTYL ORDER FOR WOUND CARE XX (03:30)
[2017-11-21] MEDS: SOD CHLORIDE 0.45% 1,000 ML IV (04:36)
[2017-11-21] MEDS: PIPER-TAZO 3.375 GM IV (PMX) 100 ML IVPB ×3 (04:36→18:42)
[2017-11-21] MEDS: HYDROmorphONE 0.5 MG/0.5 ML SYG IV ×2 (04:37→22:40)
[2017-11-21] MEDS: ONDANSETRON 4 MG INJ IV ×2 (04:37→15:30)
[2017-11-21] MEDS: METOPROLOL 25 MG TAB PO ×2 (04:37→20:42)
[2017-11-21] MEDS: COLLAGENASE 5 GM (UD JAR) TOP ×2 (04:38→09:40)
[2017-11-21] MEDS: VANCOMYCIN 1.5 GM in SOD CHLORIDE 0.9% 250 ML IVPB (06:13)
[2017-11-21] MEDS: ENOXAPARIN 40 MG/0.4 ML SYG SC (09:41)
[2017-11-21] MEDS: ACETAMINOPHEN 325 MG TAB PO (11:42)
[2017-11-21] MEDS: VANCOMYCIN 750 MG in SOD CHLORIDE 0.9% 150 ML IVPB ×2 (15:23→22:40)
[2017-11-21 18:52] LABS: FLUID AMYLASE < 30 U/L; FLUID TYPE ABDOMINAL FLUID
[2017-11-21] MEDS: SENNA TAB PO (20:40)
[2017-11-22] MEDS: PIPER-TAZO 3.375 GM IV (PMX) 100 ML IVPB ×4 (00:29→18:40)
[2017-11-22] MEDS: SOD CHLORIDE 0.45% 1,000 ML IV ×2 (05:29→12:20)
[2017-11-22] MEDS: LEVOTHYROXINE 150 MCG TAB PO (05:29)
[2017-11-22] MEDS: HYDROmorphONE 0.5 MG/0.5 ML SYG IV ×2 (05:36→18:40)
[2017-11-22 06:52] LABS: ADD MAN DIFF? NO
[2017-11-22 06:54] LABS: BASOPHILS % 0.3 % (0.0-2.0); EOSINOPHILS # 0.3 10^3/ul (0.0-0.5); EOSINOPHILS % 4.8 % (0.0-7.0); HEMATOCRIT 31.5 % (37.0-47.0); HEMOGLOBIN 9.7 g/dl (12.0-16.0); LYMPHOCYTES # 0.7 10^3/ul (0.8-2.9); LYMPHOCYTES % 10.8 % (15.0-51.0); MEAN CORPUSCULAR HGB CONC 30.8 g/dl (32.0-37.0); MEAN CORPUSCULAR VOLUME 84.5 fl (82.0-101.0); MEAN PLATELET VOLUME 9.5 fl (7.4-10.4); MONOCYTE # 0.6 10^3/ul (0.3-0.9); MONOCYTES % 9.2 % (0.0-11.0); NEUTROPHIL # 4.5 10^3/ul (1.6-7.5); NEUTROPHILS % 74.4 % (39.0-77.0); PLATELET COUNT 372 10^3/UL (140-415); RED BLOOD COUNT 3.73 10^6/ul (4.20-5.40); RED CELL DISTRIBUTION WIDTH 15.9 % (11.5-14.5)
[2017-11-22 06:54] LABS: WHITE BLOOD COUNT 6.1 10^3/ul (4.8-10.8)
[2017-11-22 07:23] LABS: ANION GAP 15 (8-16); BLOOD UREA NITROGEN 4 mg/dl (7-20); CARBON DIOXIDE 27 mmol/L (21-31); CHLORIDE 108 mmol/L (97-110); CREATININE 0.56 mg/dl (0.44-1.00); GLUCOSE 102 mg/dl (70-220); POTASSIUM 3.8 mmol/L (3.5-5.1); SODIUM 146 mmol/L (135-144)
[2017-11-22 07:40] LABS: VANCOMYCIN,TROUGH 12.6 ug/ml (10.0-20.0)
[2017-11-22] MEDS: VANCOMYCIN 750 MG in SOD CHLORIDE 0.9% 150 ML IVPB ×3 (08:20→22:29)
[2017-11-22] MEDS: METOPROLOL 25 MG TAB PO ×2 (08:21→21:00)
[2017-11-22] MEDS: ENOXAPARIN 40 MG/0.4 ML SYG SC (12:51)
[2017-11-22] MEDS: ONDANSETRON 4 MG INJ IV (15:03)
[2017-11-22] MEDS: SENNA TAB PO (15:21)
[2017-11-23] MEDS: HYDROmorphONE 0.5 MG/0.5 ML SYG IV ×5 (00:07→23:49)
[2017-11-23] MEDS: PIPER-TAZO 3.375 GM IV (PMX) 100 ML IVPB ×4 (00:30→18:05)
[2017-11-23] MEDS: SOD CHLORIDE 0.45% 1,000 ML IV ×2 (05:47→21:21)
[2017-11-23] MEDS: LEVOTHYROXINE 150 MCG TAB PO (05:47)
[2017-11-23] MEDS: ONDANSETRON 4 MG INJ IV ×2 (05:51→13:35)
[2017-11-23 06:42] LABS: ANION GAP 14 (8-16); BLOOD UREA NITROGEN 5 mg/dl (7-20); CALCIUM 9.1 mg/dl (8.4-10.2); CARBON DIOXIDE 24 mmol/L (21-31); CHLORIDE 108 mmol/L (97-110); CREATININE 0.85 mg/dl (0.44-1.00); GLUCOSE 115 mg/dl (70-220); POTASSIUM 3.7 mmol/L (3.5-5.1); SODIUM 142 mmol/L (135-144)
[2017-11-23 06:53] LABS: LIPASE 201 U/L (23-300)
[2017-11-23] MEDS: VANCOMYCIN 750 MG in SOD CHLORIDE 0.9% 150 ML IVPB ×3 (07:02→22:50)
[2017-11-23] MEDS: METOPROLOL 25 MG TAB PO ×2 (10:02→21:00)
[2017-11-23] MEDS: ENOXAPARIN 40 MG/0.4 ML SYG SC (10:03)
[2017-11-23 14:44] LABS: ADD MAN DIFF? NO
[2017-11-23 14:46] LABS: BASOPHILS % 0.3 % (0.0-2.0); EOSINOPHILS # 0.4 10^3/ul (0.0-0.5); EOSINOPHILS % 5.5 % (0.0-7.0); HEMATOCRIT 32.6 % (37.0-47.0); LYMPHOCYTES # 0.9 10^3/ul (0.8-2.9); LYMPHOCYTES % 11.6 % (15.0-51.0); MEAN CORPUSCULAR HEMOGLOBIN 25.8 pg (29.0-33.0); MEAN CORPUSCULAR HGB CONC 30.7 g/dl (32.0-37.0); MEAN PLATELET VOLUME 9.6 fl (7.4-10.4); MONOCYTE # 0.6 10^3/ul (0.3-0.9); MONOCYTES % 7.3 % (0.0-11.0); NEUTROPHIL # 5.8 10^3/ul (1.6-7.5); NEUTROPHILS % 74.8 % (39.0-77.0); PLATELET COUNT 387 10^3/UL (140-415); RED BLOOD COUNT 3.88 10^6/ul (4.20-5.40); RED CELL DISTRIBUTION WIDTH 15.9 % (11.5-14.5)
[2017-11-23 14:46] LABS: WHITE BLOOD COUNT 7.8 10^3/ul (4.8-10.8)
[2017-11-23] MEDS: SENNA TAB PO (18:05)
[2017-11-24] MEDS: PIPER-TAZO 3.375 GM IV (PMX) 100 ML IVPB ×3 (00:51→11:25)
[2017-11-24] MEDS: ONDANSETRON 4 MG INJ IV ×4 (04:30→22:28)
[2017-11-24] MEDS: HYDROmorphONE 0.5 MG/0.5 ML SYG IV ×5 (04:33→21:07)
[2017-11-24] MEDS: LEVOTHYROXINE 150 MCG TAB PO (05:56)
[2017-11-24 06:48] LABS: ADD MAN DIFF? NO
[2017-11-24] MEDS: VANCOMYCIN 750 MG in SOD CHLORIDE 0.9% 150 ML IVPB (06:55)
[2017-11-24 07:02] LABS: BASOPHILS % 0.3 % (0.0-2.0); EOSINOPHILS # 0.4 10^3/ul (0.0-0.5); HEMATOCRIT 30.8 % (37.0-47.0); HEMOGLOBIN 9.4 g/dl (12.0-16.0); LYMPHOCYTES # 0.7 10^3/ul (0.8-2.9); LYMPHOCYTES % 11.1 % (15.0-51.0); MEAN CORPUSCULAR HEMOGLOBIN 25.9 pg (29.0-33.0); MEAN CORPUSCULAR HGB CONC 30.5 g/dl (32.0-37.0); MEAN CORPUSCULAR VOLUME 84.8 fl (82.0-101.0); MEAN PLATELET VOLUME 9.7 fl (7.4-10.4); MONOCYTE # 0.7 10^3/ul (0.3-0.9); MONOCYTES % 10.2 % (0.0-11.0); NEUTROPHIL # 4.6 10^3/ul (1.6-7.5); NEUTROPHILS % 71.9 % (39.0-77.0); PLATELET COUNT 336 10^3/UL (140-415); RED BLOOD COUNT 3.63 10^6/ul (4.20-5.40); RED CELL DISTRIBUTION WIDTH 15.9 % (11.5-14.5)
[2017-11-24 07:02] LABS: WHITE BLOOD COUNT 6.4 10^3/ul (4.8-10.8)
[2017-11-24 07:22] LABS: ANION GAP 11 (8-16); BLOOD UREA NITROGEN 7 mg/dl (7-20); CALCIUM 8.8 mg/dl (8.4-10.2); CARBON DIOXIDE 26 mmol/L (21-31); CHLORIDE 111 mmol/L (97-110); CREATININE 1.01 mg/dl (0.44-1.00); GLUCOSE 103 mg/dl (70-220); POTASSIUM 3.8 mmol/L (3.5-5.1); SODIUM 144 mmol/L (135-144)
[2017-11-24] MEDS: METOPROLOL 25 MG TAB PO ×2 (09:18→21:08)
[2017-11-24] MEDS: ENOXAPARIN 40 MG/0.4 ML SYG SC (09:39)
[2017-11-24] MEDS: SOD CHLORIDE 0.45% 1,000 ML IV (11:24)
[2017-11-24] MEDS ORDERED: ONDANSETRON 4 MG TAB PO (17:00)
[2017-11-24] MEDS: CIPROFLOXACIN 500 MG TAB PO (17:03)
[2017-11-24] MEDS: CLINDAMYCIN 150 MG CAP PO ×2 (17:03→22:28)
[2017-11-24] MEDS: SILVER SULFADIAZINE 1% 25 GM CR TOP (21:07)
[2017-11-25] MEDS: HYDROmorphONE 0.5 MG/0.5 ML SYG IV ×2 (03:29→09:14)
[2017-11-25] MEDS: SOD CHLORIDE 0.45% 1,000 ML IV (03:29)
[2017-11-25] MEDS: CLINDAMYCIN 150 MG CAP PO ×2 (06:33→13:35)
[2017-11-25] MEDS: CIPROFLOXACIN 500 MG TAB PO (06:33)
[2017-11-25] MEDS: ONDANSETRON 4 MG INJ IV ×2 (06:33→13:17)
[2017-11-25] MEDS: LEVOTHYROXINE 150 MCG TAB PO (06:33)
[2017-11-25] MEDS: METOPROLOL 25 MG TAB PO (09:07)
[2017-11-25] MEDS: SILVER SULFADIAZINE 1% 25 GM CR TOP (09:08)
[2017-11-25] MEDS: ENOXAPARIN 40 MG/0.4 ML SYG SC (09:09)
[2017-11-25 12:53] LABS: ANION GAP 14 (8-16); BLOOD UREA NITROGEN 6 mg/dl (7-20); CALCIUM 9.4 mg/dl (8.4-10.2); CARBON DIOXIDE 26 mmol/L (21-31); CHLORIDE 106 mmol/L (97-110); CREATININE 0.97 mg/dl (0.44-1.00); GLUCOSE 114 mg/dl (70-220); POTASSIUM 3.9 mmol/L (3.5-5.1); SODIUM 142 mmol/L (135-144)
[2017-11-25] MEDS: HYDROCODONE/APAP (5/325) TAB PO (13:35)
[2017-11-25] MEDS: TRIMETHOPRIM/SULFAMETHOX (DS) TAB PO (16:44)
== END 2017-11-25 18:55 | disposition home or self-care (01) | DRG 863 ==
LOC: 2NE 23:39 → E/R 18:49
DX: T81.4XXA Infection following a procedure, initial encounter (principal); L03.311 Cellulitis of abdominal wall; L02.211 Cutaneous abscess of abdominal wall; K56.7 Ileus, unspecified; N17.9 Acute kidney failure, unspecified; E89.2 Postprocedural hypoparathyroidism; M43.26 Fusion of spine, lumbar region; E03.9 Hypothyroidism, unspecified; B95.62 Methicillin resistant Staphylococcus aureus infection as the cause of diseases classified elsewhere; Z98.51 Tubal ligation status; Z90.49 Acquired absence of other specified parts of digestive tract
CPT/HCPCS: 36415; 74176; 80048; 80053; 80202; 81003; 81025; 82150; 83690; 85025; 87070; 87081; 87102; 87116; 96374; 96375; 97116; 97161; 97530; 99285-25